=== PATIENT | male | born 1965 | race Caucasian/White ===

== ENCOUNTER → 2018-06-03 | Outpatient (CLI) | payer BC ==
--- NOTE | 2018-06-04 10:14 | ECHOF ---
Referral Reason:R60.0 Loczlized edema MEASUREMENTS -------- HEIGHT: 177.8 cm WEIGHT: 104.3 kg BP: RVIDd: 3.1 cm (< 3.3) IVSd: 1.3 cm (0.6 - 1.1) LVIDd: 5.4 cm (3.9 - 5.3) LVPWd: 1.3 cm (0.6 - 1.1) IVSs: 1.7 cm LVIDs: 3.6 cm LVPWs: 1.7 cm LAESV Index (A-L): 31.09 ml/m Ao Diam: 3.2 cm (2.0 - 3.7) AV Cusp: 2.1 cm (1.5 - 2.6) LA Diam: 4.0 cm (2.7 - 3.8) MV EXCURSION: 17.354 mm (> 18.000) MV EF SLOPE: 77 mm/s (70 - 150) EPSS: 0.9 cm MV E Sharad: 0.95 m/s MV DecT: 266 ms MV A Sharad: 0.89 m/s MV E/A Ratio: 1.07 RAP: 5.00 mmHg RVSP: 15.03 mmHg FINDINGS -------- Sinus rhythm. Frequent ventricular premature beats. This was a technically adequate study. The left ventricular size is normal. There is mild concentric left ventricular hypertrophy. Overa ll left ventricular systolic function is normal with, an EF between 55 - 60 %. The right ventricle is normal in size and function. LA is midly dilated 29-33ml/m2. RA appears enlarged. There is mild aortic valve sclerosis. There is no evidence of aortic regurgitation. There is no e vidence of aortic stenosis. The mitral valve leaflets are mildly thickened. There is trace mitral regurgitation. Trace tricuspid regurgitation present. Right ventricular systolic pressure is normal at < 35 mmHg. There is no evidence of pulmonary hypertension. Trace/mild (physiologic) pulmonic regurgitation. The aortic root size is normal. IVC Not well visulized. There is no pericardial effusion. CONCLUSIONS -------- 1. Sinus rhythm. 2. Frequent ventricular premature beats. 3. This was a technically adequate study. 4. The left ventricular size is normal. 5. There is mild concentric left ventricular hypertrophy. 6. Overall left ventricular systolic function is normal with, an EF between 55 - 60 %. 7. LA is midly dilated 29-33ml/m2. 8. RA appears enlarged. 9. There is mild aortic valve sclerosis. 10. The mitral valve leaflets are mildly thickened. 11. There is trace mitral regurgitation. 12. Trace tricuspid regurgitation present. 13. Right ventricular systolic pressure is normal at < 35 mmHg. 14. There is no evidence of pulmonary hypertension. 15. Trace/mild (physiologic) pulmonic regurgitation. 16. The aortic root size is normal. 17. IVC Not well visulized. 18. There is no pericardial effusion. BIOLOGICAL SCIENCES INSTRUCTOR: Cali Mireles RDCS
== END ==
LOC: RADECHMAIN 16:42
PROVIDERS: ATTEND Family Medicine
DX: I35.8 Other nonrheumatic aortic valve disorders (principal); I05.9 Rheumatic mitral valve disease, unspecified; I37.1 Nonrheumatic pulmonary valve insufficiency
CPT/HCPCS: 93306

== ENCOUNTER 2019-04-05 04:45 | Inpatient (IN) | payer BC ==
[2019-04-05 05:28] LABS: Appearance,Urine Clear (Clear); Bilirubin,Urine Negative (Negative); Blood,Urine Trace (Negative); Color,Urine Light Yellow; Glucose,Urine (UA) 4+ (Negative); Ketones,Urine Negative (Negative); Leukocyte Esterase,Urine Negative (Negative); Mucus,Urine Rare /hpf; Nitrite,Urine Negative (Negative); Protein,Urine Negative (Negative); RBC,Urine 1 /hpf (0-5); Specific Gravity,Urine 1.019 (1.001-1.035); Urobilinogen,Urine <2.0 mg/dL (<2.0); WBC,Urine 1 /hpf (0-5)
--- NOTE | 2019-04-05 05:34 | ED ---
Psych HPI - General Source: patient Mode of arrival: ambulatory - History of Present Illness MD Complaint: suicidal ideation, feels depressed -: week(s) Associated Psychiatric Symptoms: depression, suicidal ideation Quality: changing over time Improves With: none Worsens With: alcohol Context: recent alcohol abuse Associated Symptoms: denies other symptoms Treatments Prior to Arrival: none <Ant Velasquez - Last Filed: 04/05/19 05:32> <Chandan Burns - Last Filed: 04/05/19 09:44> - General Stated Complaint: Mental Health/ Sugar Issues Time Seen by Provider: 04/05/19 04:49 - History of Present Illness Initial Comments: Patient's 53-year-old man brought to have psychiatric evaluation after he had text did friends he was considering jumping in the river. The patient's friends intervened and brought him here for evaluation. (Ant Velasquez) - Related Data Allergies Allergy/AdvReac Type Severity Reaction Status Date / Time Penicillins Allergy Rash/Hives Verified 04/05/19 09:23 Review of Systems ROS Other: All systems not noted in ROS Statement are negative. Constitutional: Denies: fever, chills Respiratory: Denies: cough, dyspnea Cardiovascular: Denies: chest pain, palpitations Gastrointestinal: Denies: abdominal pain, vomiting Genitourinary: Denies: dysuria, hematuria Musculoskeletal: Denies: back pain Skin: Denies: rash Neurological: Denies: headache Psychiatric: Reports: depression, suicidal thoughts. Denies: auditory hallucinations, visual hallucinations, homicidal thoughts <Ant Velasquez - Last Filed: 04/05/19 05:32> ROS Other: All systems not noted in ROS Statement are negative. <Chandan Burns - Last Filed: 04/05/19 09:44> ROS Statement: Those systems with pertinent positive or pertinent negative responses have been documented in the HPI. Past Medical History Past Medical History: Diabetes Mellitus, Hyperlipidemia, Hypertension History of Any Multi-Drug Resistant Organisms: None Reported Additional Past Surgical History / Comment(s): right foot bunion removal and hammer toe fixed. Past Psychological History: Depression Smoking Status: Current every day smoker Past Alcohol Use History: Abuse, Daily Past Drug Use History: None Reported <Ant Velasquez - Last Filed: 04/05/19 05:32> General Exam Limitations: no limitations General appearance: alert, appears intoxicated Head exam: Present: atraumatic, normocephalic Eye exam: Present: normal appearance. Absent: scleral icterus, conjunctival injection ENT exam: Present: normal oropharynx Neck exam: Present: normal inspection Respiratory exam: Present: normal lung sounds bilaterally. Absent: respiratory distress, wheezes, rales, rhonchi, stridor Cardiovascular Exam: Present: regular rate, normal rhythm, normal heart sounds. Absent: systolic murmur, diastolic murmur, rubs, gallop GI/Abdominal exam: Present: soft. Absent: tenderness, guarding, rebound, rigid, mass Extremities exam: Present: normal inspection, normal capillary refill. Absent: pedal edema, calf tenderness Back exam: Present: normal inspection. Absent: CVA tenderness (R), CVA tenderness (L) Neurological exam: Present: alert Psychiatric exam: Present: depressed, suicidal ideation. Absent: agitated, anxious, flat affect, manic, homicidal ideation Skin exam: Present: warm, dry, intact, normal color. Absent: rash <Ant Velasquez - Last Filed: 04/05/19 05:32> Course Vital Signs 04/05/19 04/05/19 04:49 06:32 Temperature 97.9 F Pulse Rate 72 54 L Respiratory 18 18 Rate Blood Pressure 154/77 125/60 O2 Sat by Pulse 97 96 Oximetry Medical Decision Making <Chandan Burns - Last Filed: 04/05/19 09:44> - Medical Decision Making Patient care was signed out to me by previous shift physician Dr. Ibarra. Briefly, patient is a 53-year-old male presents with suicidal ideation. Patient was EtOH intoxicated at this time. Plan at [place] to follow-up with EPS recommendations. EPS recommends patient be admitted to inpatient psychiatry for inpatient monitoring. Patient reevaluated at bedside with stable medical condition. He has no complaints at this time. Physical examination done at bedside is unremarkable. (Chandan Burns) - Lab Data Lab Results 04/05/19 04/05/19 Range/Units 05:20 06:30 POC Glucose (mg/dL) 140 H (75-99) mg/dL POC Glu Peanut Farmer ID Myriam Tinsley Urine Color Light Yellow Urine Appearance Clear (Clear) Urine pH 5.0 (5.0-8.0) Ur Specific [place] 1.019 (1.001-1.035) Urine Protein Negative (Negative) Urine Glucose (UA) 4+ H (Negative) Urine Ketones Negative (Negative) Urine Blood Trace H (Negative) Urine Nitrite Negative (Negative) Urine Bilirubin Negative (Negative) Urine Urobilinogen <2.0 (<2.0) mg/dL Ur Leukocyte Esterase Negative (Negative) Urine RBC 1 (0-5) /hpf Urine WBC 1 (0-5) /hpf Urine Mucus Rare H (None) /hpf Urine Opiates Screen Not Detected (NotDetected) Ur Oxycodone Screen Not Detected (NotDetected) Urine Methadone Screen Not Detected (NotDetected) Ur Propoxyphene Screen Not Detected (NotDetected) Ur Barbiturates Screen Not Detected (NotDetected) U Tricyclic Antidepress Not Detected (NotDetected) Ur Phencyclidine Scrn Not Detected (NotDetected) Ur Amphetamines Screen Not Detected (NotDetected) U Methamphetamines Scrn Not Detected (NotDetected) U Benzodiazepines Scrn Not Detected (NotDetected) Urine Cocaine Screen Not Detected (NotDetected) U Marijuana (THC) Screen Not Detected (NotDetected) Disposition <Ant Velasquez - Last Filed: 04/05/19 05:32> Decision Time: 09:44 <Chandan Burns - Last Filed: 04/05/19 09:44> Clinical Impression: Suicidal ideation Disposition: ADMITTED IP TO THIS [facility] Condition: Fair Referrals: Tim Cesar DO [Primary Care Provider] - 1-2 days
[2019-04-05 05:41] LABS: Amphetamine Screen,Urine Not Detected (NotDetected); Barbiturate Screen,Urine Not Detected (NotDetected); Benzodiazepines Screen,Urine Not Detected (NotDetected); Cocaine Screen,Urine Not Detected (NotDetected); Methadone Screen, Urine Not Detected (NotDetected); Opiate Screen,Urine Not Detected (NotDetected); Oxycodone Screen, Urine Not Detected (NotDetected); Phencyclidine Screen,Urine Not Detected (NotDetected); Tricyclic Antidepressant,Urine Not Detected (NotDetected); Urn Cannabinoid Scrn Not Detected (NotDetected)
[2019-04-05 06:37] LABS: Glucose,Whole Blood 140 mg/dL (75-99)
[2019-04-05 11:10] LABS: Glucose,Whole Blood 83 mg/dL (75-99)
[2019-04-05] MEDS: NICOTINE 21MG/24HR PATCH TRANSDERM STA ×2 (12:27→12:29)
[2019-04-05 15:42] LABS: Glucose,Whole Blood 64 mg/dL (75-99)
[2019-04-05] MEDS ORDERED: MAGNESIUM HYDROXIDE 2,400 MG/10 ML CUP PO PRN (16:13)
[2019-04-05] MEDS ORDERED: ACETAMINOPHEN TAB 325 MG TAB PO PRN (16:13)
[2019-04-05] MEDS ORDERED: MAG HYDROX/AL HYDROX/SIMETH 30 ML CUP PO PRN (16:13)
[2019-04-05] MEDS ORDERED: ZIPRASIDONE 20 MG VIAL IM PRN (16:36)
[2019-04-05] MEDS ORDERED: LORazepam 1 MG TAB PO PRN (16:36)
[2019-04-05 17:06] VITALS: BMI 29.1
[2019-04-05 18:05] LABS: Glucose,Whole Blood 97 mg/dL (75-99)
[2019-04-05] MEDS: NON-FORMULARY DRUG (Dulaglutide [Trulicity] 1.5 MG) SQ SCH (18:47)
[2019-04-05 20:06] LABS: Glucose,Whole Blood 192 mg/dL (75-99)
[2019-04-06 07:43] LABS: Glucose,Whole Blood 81 mg/dL (75-99)
[2019-04-06] MEDS: INSULIN DETEMIR (LEVEMIR) 100 UNIT/ML SYR SQ SCH (08:00)
[2019-04-06 08:59] LABS: Basophils # (A) 0.1 k/uL (0-0.2); Basophils % (A) 1 %; Eosinophils # (A) 0.2 k/uL (0-0.7); Eosinophils % (A) 3 %; HCT 52.4 % (39.0-53.0); HGB 17.3 gm/dL (13.0-17.5); Lymphocytes # (A) 1.5 k/uL (1.0-4.8); Lymphocytes % (A) 21 %; MCHC 33.1 g/dL (31.0-37.0); MCV 90.7 fL (80.0-100.0); Mean Platelet Volume 6.8; Monocytes # (A) 0.5 k/uL (0-1.0); Monocytes % (A) 8 %; Neutrophils # (A) 4.8 k/uL (1.3-7.7); Neutrophils % (A) 67 %; Platelet Count 274 k/uL (150-450); RBC 5.78 m/uL (4.30-5.90); RDW 12.9 % (11.5-15.5); WBC 7.2 k/uL (3.8-10.6)
[2019-04-06 09:12] LABS: ALT 31 U/L (21-72); AST 30 U/L (17-59); African American GFR (CKD) >90 (>60 ml/min/1.73 sqM); Albumin 3.9 g/dL (3.5-5.0); Alkaline Phosphatase 77 U/L (38-126); Anion Gap 6 mmol/L; Bilirubin, Delta 0.4 mg/dL (0.0-0.2); Bilirubin,Unconjugated 2.1 mg/dL (0.0-1.1); Blood Urea Nitrogen 17 mg/dL (9-20); Carbon Dioxide 29 mmol/L (22-30); Chloride 105 mmol/L (98-107); Cholesterol 164 mg/dL (<200); Glucose 129 mg/dL (74-99); HDL Cholesterol 38 mg/dL (40-60); LDL Cholesterol,Calculated 99 mg/dL (0-99); Potassium 4.6 mmol/L (3.5-5.1); Sodium 140 mmol/L (137-145); Total Bilirubin 2.5 mg/dL (0.2-1.3); Triglycerides 135 mg/dL (<150)
[2019-04-06] MEDS: amLODIPine 5 MG TAB PO SCH (09:30)
[2019-04-06] MEDS: LOSARTAN 50 MG TAB PO SCH (09:31)
[2019-04-06] MEDS: NON-FORMULARY DRUG (Empagliflozin [Jardiance] 25 MG) PO SCH (09:31)
[2019-04-06 12:34] LABS: Glucose,Whole Blood 106 mg/dL (75-99)
--- NOTE | 2019-04-06 13:46 | P.CONS ---
History of Present Illness - History of Present Illness This is a pleasant 53 years old male with past medical history of diabetes me llitus. He presents to the mental health unit for suicidal ideation, he told his her friend he was considering jumping into the urinary bladder. Medical team has been consulted for A, management and for right foot ulcer. Patient denies chest pain or dyspnea. No abdominal pain or nausea vomiting. No upper respiratory infection. No dysuria. No change in urine or bowel habit. No fever. Review of Systems CONSTITUTIONAL: No fever, no malaise, no fatigue. HEENT: No recent visual problems or hearing problems. Denied any sore throat. CARDIOVASCULAR: No orthopnea, PND, no palpitations, no syncope. PULMONARY: No shortness of breath, no cough, no hemoptysis. GASTROINTESTINAL: No diarrhea, no nausea, no vomiting, no abdominal pain. Normoactive bowel sounds. NEUROLOGICAL: No headaches, no weakness, no numbness. HEMATOLOGICAL: Denies any bleeding or petechiae. GENITOURINARY: Denies any burning micturition, frequency, or urgency. MUSCULOSKELETAL/RHEUMATOLOGICAL: Denies any joint pain, swelling, or any muscle pain. ENDOCRINE: Denies any polyuria or polydipsia. Past Medical History Past Medical History: Diabetes Mellitus, Hyperlipidemia, Hypertension History of Any Multi-Drug Resistant Organisms: None Reported Additional Past Surgical History / Comment(s): right foot bunion removal and hammer toe fixed. Past Psychological History: Depression Smoking Status: Current every day smoker Past Alcohol Use History: Abuse, Daily Past Drug Use History: None Reported Medications and Allergies Home Medications Medication Instructions Recorded Confirmed Type Dulaglutide [Trulicity] 1.5 mg SQ Q7D 04/05/19 04/05/19 History Empagliflozin [Jardiance] 25 mg PO DAILY 04/05/19 04/05/19 History Insulin Degludec [Tresiba 40 units SQ DAILY 04/05/19 04/05/19 History Flextouch U-200] Losartan Potassium [Cozaar] 100 mg PO DAILY 04/05/19 04/05/19 History Nicotine [Nicotrol] 1 puff INHALATION RT-Q1H PRN MDD 04/05/19 04/05/19 History 16 PUFFS amLODIPine [Norvasc] 5 mg PO DAILY 04/05/19 04/05/19 History Allergies Allergy/AdvReac Type Severity Reaction Status Date / Time Penicillins Allergy Rash/Hives Verified 04/05/19 16:20 Physical Exam Vitals: Vital Signs Temp Pulse Resp BP 04/06/19 06:51 98.2 F 62 16 170/74 04/05/19 17:07 98.3 F 75 18 04/05/19 16:27 98.3 F 75 18 144/81 Intake and Output 04/05/19 04/06/19 04/06/19 22:59 06:59 14:59 Other: Weight 97.545 kg GENERAL: The patient is alert and oriented x3, not in any acute distress. Well developed, well nourished. HEENT: Pupils are round and equally reacting to light. EOMI. No scleral icterus. No conjunctival pallor. Normocephalic, atraumatic. No pharyngeal erythema. No thyromegaly. CARDIOVASCULAR: S1 and S2 present. No murmurs, rubs, or gallops. PULMONARY: Chest is clear to auscultation, no wheezing or crackles. ABDOMEN: Soft, nontender, nondistended, normoactive bowel sounds. No palpable organomegaly. MUSCULOSKELETAL: No joint swelling or deformity. -EXTREMITIES: No cyanosis, clubbing, or pedal edema. Right foot diabetic ulcer, on the bottom of the first/big toe, on the sole. With pale Yellowish discoloration underneath the skin NEUROLOGICAL: Gross neurological examination did not reveal any focal deficits. SKIN: No rashes. Results CBC & Chem 7: 04/06/19 08:36 04/06/19 08:36 Labs: Abnormal Lab Results - Last 24 Hours (Table) 04/05/19 04/05/19 04/06/19 Range/Units 15:37 20:04 08:36 Glucose 129 H (74-99) mg/dL POC Glucose (mg/dL) 64 L 192 H (75-99) mg/dL Total Bilirubin 2.5 H (0.2-1.3) mg/dL Unconjugated Bilirubin 2.1 H (0.0-1.1) mg/dL Delta Bilirubin 0.4 H (0.0-0.2) mg/dL HDL Cholesterol 38 L (40-60) mg/dL 04/06/19 Range/Units 12:33 Glucose (74-99) mg/dL POC Glucose (mg/dL) 106 H (75-99) mg/dL Total Bilirubin (0.2-1.3) mg/dL Unconjugated Bilirubin (0.0-1.1) mg/dL Delta Bilirubin (0.0-0.2) mg/dL HDL Cholesterol (40-60) mg/dL Assessment and Plan Assessment: Suicidal ideation and other sac illnesses, management as per second primary team. Right foot diabetic ulcer Type 2 diabetes mellitus possible medication on [place], discharge events and traesiba 40 units Hypertension Nicotine dependence Plan: This is a pleasant 53 years old male who presents to the psychiatric unit for suicidal ideation. Also he has right foot diabetic ulcer. We'll consult surgical team and foot x-ray. Labs and medication were reviewed.. Continue same treatment. Continue with symptomatic treatment. Resume home medication. Monitor lytes and vitals. DVT and GI prophylaxis. Further recommendations of the clinical course of the patient DVT prophylaxis: Patient is mobile and his low-risk for DVT
--- NOTE | 2019-04-06 14:36 | XR ---
EXAMINATION TYPE: XR foot complete RT DATE OF EXAM: 04/06/2019 COMPARISON: NONE HISTORY: Diabetic ulcer TECHNIQUE: Three views are submitted. FINDINGS: The osseous structures are intact. There is no acute fracture or dislocation. Joint spaces are p reserved. Postsurgical changes involving the first digit. Deformity involving the PIP joint of the se cond digit likely is chronic. IMPRESSION: 1. No acute fracture or dislocation. There is a chronic appearing deformity of the distal margin of t he proximal phalanx second digit at the level the PIP joint. If there is concern for osteomyelitis co rrelate with triple phase bone scan. 2. Extensive postsurgical change involving the first digit with arthropathy of the first MTP joint an d chronic deformity of the metatarsal.
[2019-04-06] MEDS ORDERED: traZODone HCL 50 MG TAB PO PRN ×2 (15:09→15:42)
[2019-04-06] MEDS ORDERED: LORazepam 1 MG TAB PO PRN (15:34)
--- NOTE | 2019-04-06 15:40 | P.HP ---
Psychiatric H&P - . H&P Date: 04/06/19 History & Physical: Allergies Allergy/AdvReac Type Severity Reaction Status Date / Time Penicillins Allergy Rash/Hives Verified 04/05/19 16:20 Vital Signs Temp 98.2 F 04/06/19 06:51 Pulse 62 04/06/19 06:51 Resp 16 04/06/19 06:51 BP 170/74 04/06/19 06:51 Pulse Ox 94 L 04/05/19 12:29 Intake & Output 04/05/19 04/06/19 04/06/19 18:59 06:59 18:59 Weight 97.545 kg Laboratory Last Values WBC 7.2 k/uL (3.8-10.6) 04/06/19 08:36 RBC 5.78 m/uL (4.30-5.90) 04/06/19 08:36 Hgb 17.3 gm/dL (13.0-17.5) 04/06/19 08:36 Hct 52.4 % (39.0-53.0) 04/06/19 08:36 MCV 90.7 fL (80.0-100.0) 04/06/19 08:36 MCH 30.0 pg (25.0-35.0) 04/06/19 08:36 MCHC 33.1 g/dL (31.0-37.0) 04/06/19 08:36 RDW 12.9 % (11.5-15.5) 04/06/19 08:36 Plt Count 274 k/uL (150-450) 04/06/19 08:36 Neutrophils % 67 % 04/06/19 08:36 Lymphocytes % 21 % 04/06/19 08:36 Monocytes % 8 % 04/06/19 08:36 Eosinophils % 3 % 04/06/19 08:36 Basophils % 1 % 04/06/19 08:36 Neutrophils # 4.8 k/uL (1.3-7.7) 04/06/19 08:36 Lymphocytes # 1.5 k/uL (1.0-4.8) 04/06/19 08:36 Monocytes # 0.5 k/uL (0-1.0) 04/06/19 08:36 Eosinophils # 0.2 k/uL (0-0.7) 04/06/19 08:36 Basophils # 0.1 k/uL (0-0.2) 04/06/19 08:36 Sodium 140 mmol/L (137-145) 04/06/19 08:36 Potassium 4.6 mmol/L (3.5-5.1) 04/06/19 08:36 Chloride 105 mmol/L (98-107) 04/06/19 08:36 Carbon Dioxide 29 mmol/L (22-30) 04/06/19 08:36 Anion Gap 6 mmol/L 04/06/19 08:36 BUN 17 mg/dL (9-20) 04/06/19 08:36 Creatinine 0.91 mg/dL (0.66-1.25) 04/06/19 08:36 Est GFR (CKD-EPI)AfAm >90 (>60 ml/min/1.73 sqM) 04/06/19 08:36 Est GFR (CKD-EPI)NonAf >90 (>60 ml/min/1.73 sqM) 04/06/19 08:36 Glucose 129 mg/dL (74-99) H 04/06/19 08:36 POC Glucose (mg/dL) 106 mg/dL (75-99) H 04/06/19 12:33 POC Glu [employer] Advisor ID Hannah Prescott 04/06/19 12:33 Calcium 9.0 mg/dL (8.4-10.2) 04/06/19 08:36 Total Bilirubin 2.5 mg/dL (0.2-1.3) H 04/06/19 08:36 Conjugated Bilirubin 0.0 mg/dL (0.0-0.3) 04/06/19 08:36 Unconjugated Bilirubin 2.1 mg/dL (0.0-1.1) H 04/06/19 08:36 Delta Bilirubin 0.4 mg/dL (0.0-0.2) H 04/06/19 08:36 AST 30 U/L (17-59) 04/06/19 08:36 ALT 31 U/L (21-72) 04/06/19 08:36 Alkaline Phosphatase 77 U/L (38-126) 04/06/19 08:36 Total Protein 7.0 g/dL (6.3-8.2) 04/06/19 08:36 Albumin 3.9 g/dL (3.5-5.0) 04/06/19 08:36 Triglycerides 135 mg/dL (<150) 04/06/19 08:36 Cholesterol 164 mg/dL (<200) 04/06/19 08:36 LDL Cholesterol, Calc 99 mg/dL (0-99) 04/06/19 08:36 HDL Cholesterol 38 mg/dL (40-60) L 04/06/19 08:36 TSH 1.080 mIU/L (0.465-4.680) 04/06/19 08:36 Urine Color Light Yellow 04/05/19 05:20 Urine Appearance Clear (Clear) 04/05/19 05:20 Urine pH 5.0 (5.0-8.0) 04/05/19 05:20 Ur Specific [place] 1.019 (1.001-1.035) 04/05/19 05:20 Urine Protein Negative (Negative) 04/05/19 05:20 Urine Glucose (UA) 4+ (Negative) H 04/05/19 05:20 Urine Ketones Negative (Negative) 04/05/19 05:20 Urine Blood Trace (Negative) H 04/05/19 05:20 Urine Nitrite Negative (Negative) 04/05/19 05:20 Urine Bilirubin Negative (Negative) 04/05/19 05:20 Urine Urobilinogen <2.0 mg/dL (<2.0) 04/05/19 05:20 Ur Leukocyte Esterase Negative (Negative) 04/05/19 05:20 Urine RBC 1 /hpf (0-5) 04/05/19 05:20 Urine WBC 1 /hpf (0-5) 04/05/19 05:20 Urine Mucus Rare /hpf (None) H 04/05/19 05:20 Urine Opiates Screen Not Detected (NotDetected) 04/05/19 05:20 Ur Oxycodone Screen Not Detected (NotDetected) 04/05/19 05:20 Urine Methadone Screen Not Detected (NotDetected) 04/05/19 05:20 Ur Propoxyphene Screen Not Detected (NotDetected) 04/05/19 05:20 Ur Barbiturates Screen Not Detected (NotDetected) 04/05/19 05:20 U Tricyclic Antidepress Not Detected (NotDetected) 04/05/19 05:20 Ur Phencyclidine Scrn Not Detected (NotDetected) 04/05/19 05:20 Ur Amphetamines Screen Not Detected (NotDetected) 04/05/19 05:20 U Methamphetamines Scrn Not Detected (NotDetected) 04/05/19 05:20 U Benzodiazepines Scrn Not Detected (NotDetected) 04/05/19 05:20 Urine Cocaine Screen Not Detected (NotDetected) 04/05/19 05:20 U Marijuana (THC) Screen Not Detected (NotDetected) 04/05/19 05:20 04/06/19 15:03 IDENTIFYING DATA: Patient is a 53-year-old male with a history of depression who currently lives in a house in [place] with his and 1 son, currently employed by [employer]. HPI: Patient presented to the hospital after texting a friend saying that he was going to end his life by jumping into the water/[place]iver. Patient claims that on Wednesday night he was in a pool game in a league at a bar with friends and ended up losing the game. He states that he felt very depressed after losing the game and went to another bar and drank heavily approximately 6-10 drinks was intoxicated and claimed he was feeling alone. He claims at that time he texted 2 of his friends claiming that she was going to be by the water near the bridge and was going to jump and end his life. He states that he went down to the river and walked near it and had thoughts of jumping in when his friends arrived and brought him into the hospital. Patient states that he has been feeling depressed for years and has previously been put on Paxil which he did not tolerate well. He states that he has had on and off suicidal ideations whenever he gets intoxicated for most of his life. He spoke of stressors at home claiming that he is trying to look for another job and how his finances are very tight trying to support his family. He states that he doesn't have insurance or any benefits with his work. He claims that he is also been thinking about his mother who . Patient admits to decreased concentration, guilt. At this time Patient denies any suicidal or homicidal ideations intent or plan. At this time patient denies any auditory or visual hallucinations. Patient denies any flight of ideas racing thoughts and increased in goal directed behavior. Patient admits to using a significant amount of alcohol 6-10 beers a night and smokes 1 pack of cigarettes per day. He denies any other illicit drug use. PAST PSYCHIATRIC HISTORY: Depression, anxiety. She has tried Paxil in the past however discontinued due to side effects. Patient denies any previous hospitalizations in a psychiatric facility. He denies any previous suicide attempts. Patient does not follow up with a psychiatrist. PMH: Diabetes mellitus, ulcer on his foot. Hypertension ALLERGIES: Penicillins CHEMICAL DEPENDENCY HISTORY: Per HPI FAMILY PSYCHIATRIC/SUBSTANCE USE HISTORY: Denies SOCIAL HISTORY: Patient is currently lives in a house in [facility]. 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 Has a master's in accounting. He has one son. MENTAL STATUS EXAM: General Appearance: Patient appears to be stated age is alert, pleasant, and cooperative. Hygiene and grooming fair Behavior: Patient is calmly seated without any agitated behavior. Irritable at times. Speech: Patient's speech is fluent and nonpressured. Mood/Affect: Patient reports their mood is poor, affect is congruent and constricted Suicidality/Homicidality: Patient denies having any suicidal or homicidal ideation intent or plan. Perceptions: Patient denies any auditory or visual hallucinations. Though content/process: There is no evidence of any delusional thought content and thought process is linear and goal-directed. Memory and concentration: AOX3, grossly intact for the purposes of this session. Can spell "WORLD" backwards Judgment and insight: Superficial STRENGTHS/WEAKNESSES: Good support system. Poor insight of her treatment. INTELLECT: Average IMPRESSIONS: Major depressive disorder, moderate-severe. Alcohol use disorder Nicotine use disorder. PLAN: -Patient is admitted under voluntary status to MHU for stabilization of psychiatric symptoms and safety. Patient signed adult voluntary form and medication consent and is placed in patient's chart. -Will start patient on sertraline 50 mg daily for mood and anxiety. Ordered trazodone 25 mg daily at bedtime when necessary for insomnia and mood. -Geodon and Ativan PRN for agitation/aggression -CIWA every 6 hours for alcohol withdrawal. Ativan to be given when necessary for CIWA scores between 10-15. -Started thiamine, MVM for etoh use -Patient was counselled on substance abuse and desired to cut back on use -Patient was informed of the risks, benefits and side effects of the medication and patient verbally consented to taking the medications. Patient signed med consent form and was placed in chart. -NRT - nicotine patch. -DAVID on board for discharge planning. Likely discharge home early next week. 04/06/19 15:24 04/06/19 15:38
[2019-04-06] MEDS: SERTRALINE 50 MG TAB PO SCH (15:45)
[2019-04-06 17:48] LABS: Glucose,Whole Blood 207 mg/dL (75-99)
[2019-04-06] MEDS: CEPHALEXIN 500 MG CAP PO SCH ×2 (17:48→21:44)
[2019-04-06] MEDS: NON-FORMULARY DRUG (Dulaglutide [Trulicity] 1.5 MG) SQ SCH (17:51)
[2019-04-06 19:34] LABS: Hemoglobin A1C 7.7 % (4.0-6.0)
[2019-04-06 19:57] LABS: Glucose,Whole Blood 274 mg/dL (75-99)
--- NOTE | 2019-04-07 05:23 | CONS ---
CONSULTATION DATE OF SERVICE: 04/06/2019 REASON FOR CONSULTATION: Right diabetic foot wound and cellulitis. HISTORY OF PRESENT ILLNESS: The patient is a 53-year-old male with a past medical history significant for diabetes mellitus, hypertension, hyperlipidemia, depression. The patient did have a wound on the plantar aspect of his right foot as a result of a callus that the patient ripped off about a week ago. The patient has been using some bandages to protect the area; however, as the bandage has been there for more than 24 hours he noticed to have more drainage on it with wound on the plantar aspect of the right foot with some surrounding white discoloration. The patient did have diabetic neuropathy. Denies significant pain to the right foot wound area. The patient denies having any fever or any chills. The patient is basically admitted hospital for suicidal ideation and is currently on the psych floor. Medicine saw the patient for management of medical condition and subsequently requested infectious disease evaluation of his right foot wound. The patient did have x-rays of the right foot completed, which shows no acute fracture or dislocation, chronic appearing deformity of the distal margin of the proximal phalanx second digit and extensive postsurgical change involving the first digit. The patient did have a bunionectomy surgery done by Dr. Hedrick in 2015. This patient has been afebrile and white count has been normal so far. REVIEW OF SYSTEMS: Positive points have been mentioned in HPI. Rest of the systems are negative. PAST MEDICAL HISTORY: Significant for diabetes mellitus, hypertension, hyperlipidemia, anxiety, depression. PAST SURGICAL HISTORY: Right foot bunion surgery and hammertoe surgery. SOCIAL HISTORY: Positive for smoking every day and drinking alcohol. No drug use. FAMILY HISTORY: No pertinent findings were noticed. ALLERGIES: Allergy to PENICILLIN with a rash. No history of anaphylaxis. MEDICATION: Medications include the patient is currently on Tylenol, Maalox, Norvasc, Levemir, Ativan, Cozaar, milk of magnesia, Zoloft, Desyrel, Geodon. PHYSICAL EXAMINATION: On examination, blood pressure 170/74 with a pulse of 62, temperature 98.2. He is 94% on room air. General description is a middle aged male up in the bed in no distress. HEENT examination shows no pallor or scleral icterus. Oral mucous membrane is dry. No pharyngeal erythema or thrush. NECK: Trachea central. There is no thyromegaly. LUNGS: Unlabored breathing, clear to auscultation anteriorly. No wheeze or crackle. HEART: S1, S2. Regular rate and rhythm. ABDOMEN: Soft, no tenderness. No guarding or rigidity. EXTREMITIES: No edema of the feet. Examination of the right foot on the plantar aspect did have a wound with some surrounding laceration. Minimal foul-smelling. No purulent drainage was noticed. NEUROLOGICAL: The patient is awake, alert, oriented x3. Mood and affect normal. LABS: Hemoglobin 17.3, white count 7.2, BUN of 17, creatinine 0.91. Electrolytes are normal. Liver enzymes are normal. DIAGNOSTIC IMPRESSION AND PLAN: 1. Patient with right diabetic foot wound with secondary cellulitis in this patient who does have a wound as a result of the patient ripping off his callus with a component of mild cellulitis likely from a gram-positive skin cierra low for a gram-negative infection. 2. Patient PENICILLIN allergy limits the number of antibiotics safe to use. PLAN: 1. Wound culture has been obtained to guide further antibiotic therapy. 2. I will empirically add Keflex 500 mg p.o. 3 times a day. 3. We will follow on his clinical condition and culture to further adjust medication if needed. Thank you for this consultation. Will follow this patient along with you. MMODL / IJN: [id number] /
[2019-04-07 07:46] LABS: Glucose,Whole Blood 82 mg/dL (75-99)
[2019-04-07] MEDS: INSULIN DETEMIR (LEVEMIR) 100 UNIT/ML SYR SQ SCH (08:00)
[2019-04-07] MEDS: NON-FORMULARY DRUG (Empagliflozin [Jardiance] 25 MG) PO SCH (09:18)
[2019-04-07] MEDS: THIAMINE 100 MG TAB PO SCH (09:20)
[2019-04-07] MEDS: amLODIPine 5 MG TAB PO SCH (09:20)
[2019-04-07] MEDS: MULTIVITAMINS, THERA 1 EACH TAB PO SCH (09:20)
[2019-04-07] MEDS: SERTRALINE 50 MG TAB PO SCH (09:20)
[2019-04-07] MEDS: CEPHALEXIN 500 MG CAP PO SCH ×3 (09:21→21:14)
[2019-04-07] MEDS: LOSARTAN 50 MG TAB PO SCH (09:21)
[2019-04-07 11:10] LABS: Albumin 3.9 g/dL (3.5-5.0); Bilirubin, Delta 0.4 mg/dL (0.0-0.2); Bilirubin,Unconjugated 1.7 mg/dL (0.0-1.1); Total Bilirubin 2.1 mg/dL (0.2-1.3); Total Protein 6.9 g/dL (6.3-8.2)
--- NOTE | 2019-04-07 12:10 | P.PN ---
Progress Note - Text Progress Note Date: 04/07/19 Interval History: patient was seen wandering the hallways this afternoon and was agreeable to sp eak to typewriters functional tester. Patient was directable and appropriate however appeared to be guarded and in denial. Patient states that he doesn't understand why he is in the hospital and states that "this is only can make it worse". Patient claims that he is taking his medications and he claims that the only side effect he felt so far was diarrhea last night from the Zoloft and states that it is okay now. Patient claims that his mood is "about the same". He denies any changes in his anxiety. Patient was reluctant to give release of information for however it was explained to him that a safe disposition was needed prior to discharge. Patient claims that he slept well last night and did not need the trazodone however typewriters functional tester informed patient that trazodone was available if needed for insomnia. he did state that he did go to some groups however did not find them beneficial.At this time patient denies any suicidal or homical ideations, intent or plan. Patient denies any auditory, visual hallucinations and denies any paranoia or delusions. he should admitted to be compliant with medications Mental Status Exam: General Appearance: [Patient appears to be stated age is alert, pleasant, and co operative.] patient's hygiene and grooming are improving. Behavior: [Patient is calmly seated without any agitated behavior.]patient was guarded today. Speech: Patient's speech is fluent and nonpressured. Mood/Affect: Patient reports their mood is "about the same", affect is congruent and constricted. Suicidality/Homicidality: Patient denies having any suicidal or homicidal ideation intent or plan. Perceptions: Patient denies any auditory or visual hallucinations. Though content/process: [There is no evidence of any delusional thought content and thought process is linear and goal-directed.] patient minimizes his depression and symptoms. Memory and concentration: AOX3, grossly intact for the purposes of this session Judgment and insight: superficial, poor Assessment: Major depressive disorder, moderate-severe. Alcohol use disorder Nicotine use disorder. Plan: -Patient continues to meet criteria for inpatient psychiatric admission for symptom stabilization and safety.patient is under voluntary status at this time medication consents were signed and placed in the patient's chart. -Medications: we will continue increasing sertraline 100 mg daily starting tomorrowfor mood and anxiety. Increase as tolerated. Patient also will continue on trazodone 25 mg daily at bedtime when necessary for insomnia and mood. -When necessary Geodon and Ativan for agitation/aggression. -CIWA every 6 hours for alcohol withdrawal. Ativan to be given when necessary for CIWA scores between 10-15. -x-ray of foot showed possible osteomyelitis, Keflex by mouth started and wound culture currently pending. -nicotine patch ordered -SW on board for discharge planning. social media marketing specialist to obtain release of information to speak with to ensure safety at home upon discharge.
[2019-04-07 12:49] LABS: Glucose,Whole Blood 86 mg/dL (75-99)
--- NOTE | 2019-04-07 13:41 | PN ---
PROGRESS NOTE DATE OF SERVICE: 04/07/2019 REASON FOR FOLLOWUP: Right diabetic foot with infected callus. INTERVAL HISTORY: The patient is currently afebrile. Patient has been breathing comfortably. Denies having any chest pain or any cough or any worsening of pain to the right foot plantar wound area. PHYSICAL EXAMINATION: On examination, blood pressure 157/76 with pulse 62, temperature 98.1. He is 94% on room air. General description is a middle aged male up in the chair in no distress. Examination of the right foot on the plantar aspect did have an infected callus with minimal redness. No foul smelling drainage. Culture has to be re-taken as was obtained on a swab yesterday. LABS: No new labs today. DIAGNOSTIC IMPRESSION AND PLAN: Patient with right diabetic foot infection. The patient did have infected callus, currently covered with oral Keflex. The patient did have PENICILLIN allergy, tolerated Keflex without any problem, to continue. Culture has been obtained antibiotic therapy. Local wound care with Aquacel Silver dressing to be changed daily. Continue supportive care. MMODL / IJN: [id number] /
[2019-04-07 17:52] LABS: Glucose,Whole Blood 133 mg/dL (75-99)
[2019-04-07 20:11] LABS: Glucose,Whole Blood 145 mg/dL (75-99)
[2019-04-08 07:59] LABS: Glucose,Whole Blood 76 mg/dL (75-99)
[2019-04-08] MEDS: LOSARTAN 50 MG TAB PO SCH (09:07)
[2019-04-08] MEDS: THIAMINE 100 MG TAB PO SCH (09:07)
[2019-04-08] MEDS: SERTRALINE 100 MG TAB PO SCH (09:07)
[2019-04-08] MEDS: amLODIPine 5 MG TAB PO SCH (09:07)
[2019-04-08] MEDS: NON-FORMULARY DRUG (Empagliflozin [Jardiance] 25 MG) PO SCH (09:08)
[2019-04-08] MEDS: CEPHALEXIN 500 MG CAP PO SCH ×3 (09:08→21:18)
[2019-04-08] MEDS: MULTIVITAMINS, THERA 1 EACH TAB PO SCH (09:08)
[2019-04-08] MEDS: INSULIN DETEMIR (LEVEMIR) 100 UNIT/ML SYR SQ SCH (09:09)
[2019-04-08 12:58] LABS: Glucose,Whole Blood 85 mg/dL (75-99)
[2019-04-08 17:52] LABS: Glucose,Whole Blood 118 mg/dL (75-99)
--- NOTE | 2019-04-08 18:30 | PN ---
PROGRESS NOTE DATE OF SERVICE: 04/08/2019. CHIEF COMPLAINT: The patient was depressed. He had suicide thoughts and had texted a friend that he was going to end his life by jumping off a bridge. INTERVAL HISTORY: Patient has been doing fair. He had a quiet evening last night. He said for the most part, he has been sleeping well. He has not been taking any p.r.n. Desyrel. He slept well last night. This morning he has been up. He comes out in the day area. He has been attending groups. He is appropriate in his interaction with staff and peers. He tends to have a quiet manner. He does have a history of significant alcohol issues and reports drinking 6-10 beers, 3-4 days a week. He says he was recognizing it was getting out of control and that he needed to get some help with that as well. He does seem to minimize alcohol issues, even though he recognized a need to cut down his use. He feels that overall mood and anxiety are slowly improving. He tolerates his psychotropic medications. MENTAL STATUS: Patient sat without restlessness. He had fair eye contact. Psychomotor activity was slowed. Speech was monotone. He answered questions appropriately. His thoughts were clear. His affect was blunted. He had a withdrawn manner. His mood was down. He was somewhat distressed though mainly with complaint of headache. There was no indication of thought disorder. Cognition was clear. ASSESSMENT: I will continue the current diagnosis and treatment plan. I will continue psychotropic medications the same. It is noteworthy that CIWA scores have been essentially 0. We will continue to focus on stabilization and discharge planning. He uses his walker a fair amount of the time. We talked about the need for him to try to control shoulder and neck tension, which may be contributing factor. I will start him on Motrin 800 mg 3 times a day. I reviewed discharge planning issues. MMODL / IJN: [id number] / [facility] NETWORKJulia
[2019-04-08 20:11] LABS: Glucose,Whole Blood 200 mg/dL (75-99)
[2019-04-09 06:54] VITALS: TEMP 98.1
[2019-04-09 08:00] LABS: Glucose,Whole Blood 73 mg/dL (75-99)
[2019-04-09] MEDS: LOSARTAN 50 MG TAB PO SCH (08:28)
[2019-04-09] MEDS: MULTIVITAMINS, THERA 1 EACH TAB PO SCH (08:29)
[2019-04-09] MEDS: CEPHALEXIN 500 MG CAP PO SCH ×3 (08:29→21:17)
[2019-04-09] MEDS: THIAMINE 100 MG TAB PO SCH (08:29)
[2019-04-09] MEDS: amLODIPine 5 MG TAB PO SCH (08:29)
[2019-04-09] MEDS: SERTRALINE 100 MG TAB PO SCH (08:29)
[2019-04-09] MEDS: INSULIN DETEMIR (LEVEMIR) 100 UNIT/ML SYR SQ SCH (08:29)
[2019-04-09] MEDS: NON-FORMULARY DRUG (Empagliflozin [Jardiance] 25 MG) PO SCH (08:32)
--- NOTE | 2019-04-09 11:53 | PN ---
PROGRESS NOTE DATE OF SERVICE: 04/09/2019. CHIEF COMPLAINT: The patient was depressed. He had suicide thoughts and had text a friend that he was going to end his life by jumping off a bridge. INTERVAL HISTORY: Patient has been doing fair. He had a quiet evening last night. He comes out in the day area. He will wander about. He will interact with others. He says that he slept well last night. Today he has been up. He comes out in the day area. He attended group this morning. He was described in group as follows: "Appropriate, bright, attentive, organized focused". The patient reports that his mood is good. He sees that he has made progress with being on Zoloft. He would not be inclined to increase the dose at this time given that he has seen progress. He tolerates his psychotropic medications. MENTAL STATUS: Patient gave fairly good eye contact. Psychomotor activity was a little restless. He answered questions appropriately. His thoughts were clear, coherent, and goal directed. His affect was a little constricted. His mood was even he did appear to be distressed. There was no indication of thought disorder. Cognition was clear. ASSESSMENT: I will continue the current diagnosis and treatment plan. I will continue psychotropic medications the same. I briefly reviewed some discharge planning possibilities. We will continue to focus on stabilization and discharge planning. STALIN / KATERYNAN: [id number] /
[2019-04-09 12:46] LABS: Glucose,Whole Blood 109 mg/dL (75-99)
[2019-04-09 17:40] LABS: Glucose,Whole Blood 101 mg/dL (75-99)
[2019-04-09 20:05] LABS: Glucose,Whole Blood 212 mg/dL (75-99)
[2019-04-10 07:40] LABS: Glucose,Whole Blood 74 mg/dL (75-99)
[2019-04-10] MEDS: INSULIN DETEMIR (LEVEMIR) 100 UNIT/ML SYR SQ SCH (07:59)
[2019-04-10] MEDS: MULTIVITAMINS, THERA 1 EACH TAB PO SCH (08:00)
[2019-04-10] MEDS: SERTRALINE 100 MG TAB PO SCH (08:00)
[2019-04-10] MEDS: NON-FORMULARY DRUG (Empagliflozin [Jardiance] 25 MG) PO SCH (08:00)
[2019-04-10] MEDS: LOSARTAN 50 MG TAB PO SCH (08:00)
[2019-04-10] MEDS: CEPHALEXIN 500 MG CAP PO SCH (08:00)
[2019-04-10] MEDS: THIAMINE 100 MG TAB PO SCH (08:00)
[2019-04-10] MEDS: amLODIPine 5 MG TAB PO SCH (08:00)
[2019-04-10 08:04] VITALS: BP 131/58; PULSE 72; RESP 18
[2019-04-10] MEDS ORDERED: CIPROFLOXACIN HCL 500 MG TAB PO SCH (11:06)
[2019-04-10] MEDS ORDERED: CEFEPIME 2 GM in SODIUM CHLORIDE 0.9% 100 ML IVPB SCH (11:15)
[2019-04-10 12:20] LABS: Glucose,Whole Blood 93 mg/dL (75-99)
--- NOTE | 2019-04-10 12:47 | P.DS ---
Providers Date of admission: 04/05/19 15:48 Expected date of discharge: 04/10/19 Attending physician: Sami Webber MD Consults: 04/05/19 16:36 Consult Physician Routine Consulting Provider: Esdras Charles Consult Reason/Comments: H & P and medical care Do you want consulting provider notified?: Yes 04/06/19 13:08 Consult Physician Routine Consulting Provider: Farhad Valadez Consult Reason/Comments: debridement of diabetic ulcer on bottom of right foot Do you want consulting provider notified?: Yes 04/07/19 05:56 Consult Physician Stat Consulting Provider: Colin Odonnell Consult Reason/Comments: Repeat toe culture-deep tissue Do you want consulting provider notified?: Yes Primary care physician: Tim Cesar - Discharge Diagnosis(es) (1) Major depressive disorder Current Visit: Yes Status: Acute Priority: High (2) Alcohol use disorder Current Visit: Yes Status: Acute Priority: High (3) Nicotine dependence Current Visit: Yes Status: Acute Priority: Low Hospital Course: Admission HPI: Patient is a 53-year-old male with a history of depression who currently lives in a house in [place] with his and 1 son, currently employed by [employer]. Patient presented to the hospital after texting a friend saying that he was going to end his life by jumping into the water/[place]. Patient claims that on Wednesday night he was in a pool game in a league at a bar with friends and ended up losing the game. He states that he felt very depres sed after losing the game and went to another bar and drank heavily approximately 6-10 drinks was intoxicated and claimed he was feeling alone. He claims at that time he texted 2 of his friends claiming that she was going to be by the water near the bridge and was going to jump and end his life. He states that he went down to the river and walked near it and had thoughts of jumping in when his friends arrived and brought him into the hospital. Patient states that he has been feeling depressed for years and has previously been put on Paxil which he did not tolerate well. He states that he has had on and off suicidal ideations whenever he gets intoxicated for most of his life. He spoke of stressors at home claiming that he is trying to look for another job and how his finances are very tight trying to support his family. He states that he doesn't have insurance or any benefits with his work. He claims that he is also been thinking about his mother who . Patient admits to decreased concentration, guilt. At this time Patient denies any suicidal or homicidal ideations intent or plan. At this time patient denies any auditory or visual hallucinations. Patient denies any flight of ideas racing thoughts and increased in goal directed behavior. Patient admits to using a significant amount of alcohol 6-10 beers a night and smokes 1 pack of cigarettes per day. He denies any other illicit drug use. Hospital course: Upon admission to the unit patient was initially hostile, irritable and had a depressed affect and mood. Patient was reluctant to engage with treatment and wanted to be discharged, however patient did sign voluntary and agreed to stay to improve his mood. Patient got along well with other patients on the unit and followed unit protocol. Patient was compliant with the medications and denied any side effects throughout hospital course except for minor diarrhea on the first day of starting Zoloft. Patient was started on Zoloft and titrated up to 100 mg daily for mood and anxiety. Patient was also put on CIWA to monitor for any alcohol withdrawal symptoms. Patient spoke of his stressors and engaged in therapy both group and individual. Patient was also seen by medical team for history and physical exam. Patient was found to have a right foot wound/ulcer which an x-ray was performed on admission. Please see x-ray results/impression. Right foot wound culture grew Pseudomonas a., Group B strep, enterococcus f. And "presumptive staph aureus". Patient was placed on by mouth Keflex which then added on ciprofloxacin. Further workup/imaging needs to be done to rule out osteomyelitis. Throughout the course of the hospitalization patient gradually improved with regards to mood, anxiety and became future oriented and hopeful. On the day of discharge patient denied any suicidal or homicidal ideations intent or plan denied any auditory or visual hallucinations. Patient denied any paranoia and did not endorse any delusions. Was discussed in great length and detail about patient's alcohol use disorder and its affect on his physical and mental health and possible interactions with his medications, patient agreed and claimed that he was going to stay sober and did not need any referrals to a rehab or meetings or medications at this time. [Patient was also counseled on the medications and need for regular compliance and was encouraged to follow-up with their outpatient appointment for mental health and also for primary care.] Due to patient's extensive right foot wound/ulcer it was advised by infectious disease and internal medicine attending that patient should be transferred to the medical floors for further workup and treatment of his wound. Mental status exam: General Appearance: [Patient appears to be stated age is alert, pleasant, and cooperative. Patient is in no acute distress and has fair hygiene and grooming] Behavior: [Patient is calmly seated without any agitated behavior.] Speech: Patient's speech is fluent and nonpressured. Mood/Affect: Patient reports their mood is "ok" affect is congruent and euthymic. Suicidality/Homicidality: Patient denies having any suicidal or homicidal ideation intent or plan. Perceptions: Patient denies any auditory or visual hallucinations. Though content/process: There is no evidence of any delusional thought content and thought process is linear and goal-directed. Memory and concentration: AOX3, grossly intact for the purposes of this session. Can spell "WORLD" backwards correctly. Judgment and insight: fair, improved Impression: Major depressive disorder, moderate-severe. Alcohol use disorder Nicotine use disorder Plan: -Continue with discharge today from the mental health unit as patient has improved and stabilized psychiatrically and no longer remains an imminent threat to [himself] and/or others. -Continue medications: Zoloft 100 mg daily for mood and anxiety. Continue with multivitamin and thiamine. -Patient was counseled on the need for medication compliance and appropriate follow-up at mental health and also primary care for medical issues. Patient verbalized understanding and agreed. -Social work to give patient resources and numbers for substance use treatment. clay house worker to perform a family meeting prior to discharge from the unit. and patient were informed that his guns/weapons in the house were to be rem angely from the premise, they both agreed to do so. -Patient counseled on abstaining from recreational drugs and marijuana and alcohol. Was informed/educated on the adverse effects on their physical and mental health. -Due to patient's extensive right foot wound/ulcer it was advised by infectious disease and internal medicine attending that patient should be transferred to the medical floors for further workup and treatment of his wound. Electrician spoke with patient in detail about the outcome of the culture from the wound and the seriousness of the infection which needs to be further treated on the medical floors. Patient agreed and stated that she except the transfer and the treatment and was able to verbalize the risks of not going forth with treatment. At this time patient has the capacity to make decisions on his treatment. -Patient was instructed to return to the hospital or seek immediate medical care if their psychiatric or medical systems do worsen or reoccur. Allergies Allergy/AdvReac Type Severity Reaction Status Date / Time Penicillins Allergy Rash/Hives Verified 04/05/19 16:20 Laboratory Results WBC 7.2 k/uL (3.8-10.6) 04/06/19 08:36 RBC 5.78 m/uL (4.30-5.90) 04/06/19 08:36 Hgb 17.3 gm/dL (13.0-17.5) 04/06/19 08:36 Hct 52.4 % (39.0-53.0) 04/06/19 08:36 MCV 90.7 fL (80.0-100.0) 04/06/19 08:36 MCH 30.0 pg (25.0-35.0) 04/06/19 08:36 MCHC 33.1 g/dL (31.0-37.0) 04/06/19 08:36 RDW 12.9 % (11.5-15.5) 04/06/19 08:36 Plt Count 274 k/uL (150-450) 04/06/19 08:36 Neutrophils % 67 % 04/06/19 08:36 Lymphocytes % 21 % 04/06/19 08:36 Monocytes % 8 % 04/06/19 08:36 Eosinophils % 3 % 04/06/19 08:36 Basophils % 1 % 04/06/19 08:36 Neutrophils # 4.8 k/uL (1.3-7.7) 04/06/19 08:36 Lymphocytes # 1.5 k/uL (1.0-4.8) 04/06/19 08:36 Monocytes # 0.5 k/uL (0-1.0) 04/06/19 08:36 Eosinophils # 0.2 k/uL (0-0.7) 04/06/19 08:36 Basophils # 0.1 k/uL (0-0.2) 04/06/19 08:36 ESR 2 mm/hr (0-15) 04/06/19 08:36 Sodium 140 mmol/L (137-145) 04/06/19 08:36 Potassium 4.6 mmol/L (3.5-5.1) 04/06/19 08:36 Chloride 105 mmol/L (98-107) 04/06/19 08:36 Carbon Dioxide 29 mmol/L (22-30) 04/06/19 08:36 Anion Gap 6 mmol/L 04/06/19 08:36 BUN 17 mg/dL (9-20) 04/06/19 08:36 Creatinine 0.91 mg/dL (0.66-1.25) 04/06/19 08:36 Est GFR (CKD-EPI)AfAm >90 (>60 ml/min/1.73 sqM) 04/06/19 08:36 Est GFR (CKD-EPI)NonAf >90 (>60 ml/min/1.73 sqM) 04/06/19 08:36 Glucose 129 mg/dL (74-99) H 04/06/19 08:36 POC Glucose (mg/dL) 93 mg/dL (75-99) 04/10/19 12:18 POC Glu Clinical Appeals Reviewer ID [place], [place] 04/10/19 12:[address] Glu mg/dL 174 04/06/19 08:36 Hemoglobin A1c 7.7 % (4.0-6.0) H 04/06/19 08:36 Calcium 9.0 mg/dL (8.4-10.2) 04/06/19 08:36 Total Bilirubin 2.1 mg/dL (0.2-1.3) H 04/07/19 10:22 Conjugated Bilirubin 0.0 mg/dL (0.0-0.3) 04/07/19 10:22 Unconjugated Bilirubin 1.7 mg/dL (0.0-1.1) H 04/07/19 10:22 Delta Bilirubin 0.4 mg/dL (0.0-0.2) H 04/07/19 10:22 AST 35 U/L (17-59) 04/07/19 10:22 ALT 32 U/L (21-72) 04/07/19 10:22 Alkaline Phosphatase 67 U/L (38-126) 04/07/19 10:22 C-Reactive Protein 6.8 mg/L (<10.0) 04/06/19 08:36 Total Protein 6.9 g/dL (6.3-8.2) 04/07/19 10:22 Albumin 3.9 g/dL (3.5-5.0) 04/07/19 10:22 Triglycerides 135 mg/dL (<150) 04/06/19 08:36 Cholesterol 164 mg/dL (<200) 04/06/19 08:36 LDL Cholesterol, Calc 99 mg/dL (0-99) 04/06/19 08:36 HDL Cholesterol 38 mg/dL (40-60) L 04/06/19 08:36 TSH 1.080 mIU/L (0.465-4.680) 04/06/19 08:36 Urine Color Light Yellow 04/05/19 05:20 Urine Appearance Clear (Clear) 04/05/19 05:20 Urine pH 5.0 (5.0-8.0) 04/05/19 05:20 Ur Specific Sulphur 1.019 (1.001-1.035) 04/05/19 05:20 Urine Protein Negative (Negative) 04/05/19 05:20 Urine Glucose (UA) 4+ (Negative) H 04/05/19 05:20 Urine Ketones Negative (Negative) 04/05/19 05:20 Urine Blood Trace (Negative) H 04/05/19 05:20 Urine Nitrite Negative (Negative) 04/05/19 05:20 Urine Bilirubin Negative (Negative) 04/05/19 05:20 Urine Urobilinogen <2.0 mg/dL (<2.0) 04/05/19 05:20 Ur Leukocyte Esterase Negative (Negative) 04/05/19 05:20 Urine RBC 1 /hpf (0-5) 04/05/19 05:20 Urine WBC 1 /hpf (0-5) 04/05/19 05:20 Urine Mucus Rare /hpf (None) H 04/05/19 05:20 Urine Opiates Screen Not Detected (NotDetected) 04/05/19 05:20 Ur Oxycodone Screen Not Detected (NotDetected) 04/05/19 05:20 Urine Methadone Screen Not Detected (NotDetected) 04/05/19 05:20 Ur Propoxyphene Screen Not Detected (NotDetected) 04/05/19 05:20 Ur Barbiturates Screen Not Detected (NotDetected) 04/05/19 05:20 U Tricyclic Antidepress Not Detected (NotDetected) 04/05/19 05:20 Ur Phencyclidine Scrn Not Detected (NotDetected) 04/05/19 05:20 Ur Amphetamines Screen Not Detected (NotDetected) 04/05/19 05:20 U Methamphetamines Scrn Not Detected (NotDetected) 04/05/19 05:20 U Benzodiazepines Scrn Not Detected (NotDetected) 04/05/19 05:20 Urine Cocaine Screen Not Detected (NotDetected) 04/05/19 05:20 U Marijuana (THC) Screen Not Detected (NotDetected) 04/05/19 05:20 Vital Signs Temp 98.1 F 04/10/19 06:28 Pulse 72 04/10/19 08:03 Resp 18 04/10/19 08:03 BP 131/58 04/10/19 08:03 Pulse Ox 94 L 04/05/19 12:29 Intake & Output 04/09/19 04/10/19 04/10/19 18:59 06:59 18:59 Weight 95.8 kg Patient Condition at Discharge: Stable Plan - Discharge Summary Discharge Rx Participant: No New Discharge Prescriptions: New Cephalexin [Keflex] 500 mg PO TID cap Multivitamins, Thera [Multivitamin (formulary)] 1 each PO DAILY tab Thiamine [Vitamin B-1] 100 mg PO DAILY tab Sertraline [Zoloft] 100 mg PO DAILY tab Continue Dulaglutide [Trulicity] 1.5 mg SQ Q7D Nicotine [Nicotrol] 1 puff INHALATION RT-Q1H PRN MDD 16 PUFFS PRN Reason: Nicotine Cravings Insulin Degludec [Tresiba Flextouch U-200] 40 units SQ DAILY amLODIPine [Norvasc] 5 mg PO DAILY Losartan Potassium [Cozaar] 100 mg PO DAILY Empagliflozin [Jardiance] 25 mg PO DAILY Discharge Medication List Dulaglutide [Trulicity] 1.5 mg SQ Q7D 04/05/19 [History] Empagliflozin [Jardiance] 25 mg PO DAILY 04/05/19 [History] Insulin Degludec [Tresiba Flextouch U-200] 40 units SQ DAILY 04/05/19 [History] Losartan Potassium [Cozaar] 100 mg PO DAILY 04/05/19 [History] Nicotine [Nicotrol] 1 puff INHALATION RT-Q1H PRN MDD 16 PUFFS 04/05/19 [History] amLODIPine [Norvasc] 5 mg PO DAILY 04/05/19 [History] Cephalexin [Keflex] 500 mg PO TID cap 04/10/19 [Rx] Multivitamins, Thera [Multivitamin (formulary)] 1 each PO DAILY tab 04/10/19 [Rx] Sertraline [Zoloft] 100 mg PO DAILY tab 04/10/19 [Rx] Thiamine [Vitamin B-1] 100 mg PO DAILY tab 04/10/19 [Rx] Follow up Appointment(s)/Referral(s): [facility] [Outside] - 04/13/19 5:00 pm ([place]) Tim Cesar DO [Primary Care Provider] - 1-2 days Colin Odonnell MD [STAFF PHYSICIAN] - 04/18/19 2:30 pm Patient Instructions/Handouts: Depression (DC), Abuse of Alcohol (DC), At-Risk Alcohol Use (DC), Help Prevent Suicide (DC), Suicide Prevention (ED) Activity/Diet/Wound Care/Special Instructions: Activity and diet as tolerated. No guns or weapons in the home. Refrain from alcohol and street drugs not prescribed by your physician. Take all medications as prescribed, and attend all follow up appointments as scheduled. If in need of medication refills, please go to your out patient psychiatrist, or primary care physician. If in crisis, please go to the nearest ER for an evaluation, or call the crisis line at . Follow up with Dr. Odonnell in one week after discharge for right foot. Continue the Cipro 500mg one tablet twice a day and Keflex 500mg three times a day. Discharge Disposition: HOME SELF-CARE
--- NOTE | 2019-04-10 13:19 | P.PN ---
Subjective This is a pleasant 53 years old male with past medical history of diabetes mellitus. He presents to the mental health unit for suicidal ideation, he told his her friend he was considering jumping into the urinary bladder. Medical team has been consulted for A, management and for right foot ulcer. Patient denies chest pain or dyspnea. No abdominal pain or nausea vomiting. No upper respiratory infection. No dysuria. No change in urine or bowel habit. No fever. Patient has been evaluated by ID team and he was started on oral antibiotics. Foot x-ray showing extensive postsurgical changes with arthropathy of the first meta-tarsophalangeal joint. No acute fracture or dislocation., Chronic deformity of the proximal phalanx of the second toe. Patient is currently on Cipro antibiotics and Keflex. Objective - Vital Signs Vital signs: Vital Signs Temp 98.1 F 04/10/19 06:28 Pulse 72 04/10/19 08:03 Resp 18 04/10/19 08:03 BP 131/58 04/10/19 08:03 Pulse Ox 94 L 04/05/19 12:29 Intake & Output 04/09/19 04/10/19 04/10/19 18:59 06:59 18:59 Weight 95.8 kg - Exam GENERAL: The patient is alert and oriented x3, not in any acute distress. Well developed, well nourished. HEENT: Pupils are round and equally reacting to light. EOMI. No scleral icterus. No conjunctival pallor. Normocephalic, atraumatic. No pharyngeal erythema. No thyromegaly. CARDIOVASCULAR: S1 and S2 present. No murmurs, rubs, or gallops. PULMONARY: Chest is clear to auscultation, no wheezing or crackles. ABDOMEN: Soft, nontender, nondistended, normoactive bowel sounds. No palpable organomegaly. MUSCULOSKELETAL: No joint swelling or deformity. -EXTREMITIES: No cyanosis, clubbing, or pedal edema. Right foot diabetic ulcer, on the bottom of the first/big toe, on the sole. With pale Yellowish discoloration underneath the skin, which basically looks the same. There is a new shallow ulcer on the tip of the second toe. NEUROLOGICAL: Gross neurological examination did not reveal any focal deficits. SKIN: No rashes. Gait: Walks without difficulty. - Labs CBC & Chem 7: 04/06/19 08:36 04/06/19 08:36 Labs: Abnormal Lab Results - Last 24 Hours (Table) 04/09/19 04/09/19 04/10/19 Range/Units 17:34 20:03 07:39 POC Glucose (mg/dL) 101 H 212 H 74 L (75-99) mg/dL Microbiology - Last 24 Hours (Table) 04/07/19 12:22 Gram Stain - Preliminary Foot - Right Wound Culture - Preliminary Pseudomonas aeruginosa Strep agalactiae - (group b) Enterococcus faecalis Presumptive Staph aureus Assessment and Plan Assessment: Major depression and other psychiatric illnesses, management as per second primary team. Right foot diabetic ulcer. Wound culture is positive with many microorganisms including Pseudomonas, strep agalactiae, enterococcus and staph aureus. Type 2 diabetes mellitus possible medication on [place], discharge events and traesiba 40 units Hypertension Nicotine dependence Plan: This is a pleasant 53 years old male who presents to the psychiatric unit for depression. Also he has right foot diabetic ulcer. Patient wounds showing minimal, organism, patient will need further evaluation for possible intravenous antibiotics. And also vascular surgery evaluation. Discussed the case with the patient and he agrees with transfer to the general medical floor. Risks and including but not limited to losing the foot with amputation, sepsis and are explained to the patient and he verbalized understanding and acceptance. Discussed the case with the admitting physician and he agrees with this plan. Patient looks like he is going to be clear and psychiatry for discharge today. We're going to admit him to the general medical floor for further care.Labs and medication were reviewed.. Continue same treatment. Continue with symptomatic treatment. Resume home medication. Monitor lytes and vitals. DVT and GI prophylaxis. Further recommendations of the clinical course of the patient DVT prophylaxis: Patient is mobile and his low-risk for DVT. Discussed with the psych attending, bedside staff and admitting to transfer the patient.
--- NOTE | 2019-04-10 15:56 | PN ---
PROGRESS NOTE DATE OF SERVICE: 04/10/2019 REASON FOR FOLLOWUP: Right diabetic foot wound and cellulitis. INTERVAL HISTORY: The patient is currently afebrile. The patient is breathing comfortably. He did have some discomfort in the right foot and also now developed a wound on the tip of his right second toe since last evaluation. No history of any trauma. No nausea. No vomiting. No abdominal pain or diarrhea. PHYSICAL EXAMINATION: Blood pressure 131/58 with a pulse of 72, temperature 98.1. General description is a middle-aged male up in the bed in no distress. EXAMINATION OF THE RIGHT FOOT: Minimal swelling, redness. No drainage. Wound on the right second toe new. LABS: Wound cultures show multiple pathogens. DIAGNOSTIC IMPRESSION AND PLAN: Patient with a right diabetic foot wound from a callus with multiple pathogens. Oral Cipro has been added. Only medication interacting was Geodon, which apparently is not going to be continued on discharge. The patient has been advised admission to the hospital for IV antibiotic therapy and to be evaluated by Vascular Surgery for possible debridement. Questions and concerns were answered. MMODL / IJN: [id number] /
[2019-04-10] MEDS ORDERED: CEPHALEXIN 500 MG CAP PO SCH (16:00)
== END 2019-04-10 14:30 | disposition home or self-care (01) | DRG 885 ==
LOC: EC 04:45 → 3MHU 15:48
PROVIDERS: ADMIT Psychiatry & Neurology Psychiatry; ATTEND Psychiatry & Neurology Psychiatry
DX: F32.1 Major depressive disorder, single episode, moderate (principal); F10.239 Alcohol dependence with withdrawal, unspecified; L03.115 Cellulitis of right lower limb; R45.851 Suicidal ideations; B96.5 Pseudomonas (aeruginosa) (mallei) (pseudomallei) as the cause of diseases classified elsewhere; E11.40 Type 2 diabetes mellitus with diabetic neuropathy, unspecified; E11.621 Type 2 diabetes mellitus with foot ulcer; E78.5 Hyperlipidemia, unspecified; F10.229 Alcohol dependence with intoxication, unspecified; F17.200 Nicotine dependence, unspecified, uncomplicated; F41.9 Anxiety disorder, unspecified; I10 Essential (primary) hypertension; L97.519 Non-pressure chronic ulcer of other part of right foot with unspecified severity; M12.9 Arthropathy, unspecified; Z79.4 Long term (current) use of insulin; Z79.899 Other long term (current) drug therapy; Z88.0 Allergy status to penicillin
CPT/HCPCS: 36415; 80053; 80061; 80076; 80306; 81001; 82075; 82248; 83036; 84443; 85025; 85652; 86140; 87070; 87077; 87186; 87205; 99285

== ENCOUNTER 2019-04-10 13:05 | Inpatient (IN) | payer BC ==
[2019-04-10 16:46] VITALS: BMI 30.2
[2019-04-10] MEDS ORDERED: VANCOMYCIN IV PER PHARMACY 1 EACH MISC MISCELLANE PRN (17:41)
[2019-04-10] MEDS: SODIUM CHLORIDE 0.9% 1,000 ML IV SCH (18:30)
[2019-04-10] MEDS: VANCOMYCIN 1,500 MG in SODIUM CHLORIDE 0.9% 250 ML IVPB SCH (18:36)
[2019-04-10 20:28] LABS: Glucose,Whole Blood 177 mg/dL (75-99)
[2019-04-10] MEDS: HEPARIN SODIUM,PORCINE 5,000 UNIT/ML 1 ML VIAL SQ SCH (21:45)
[2019-04-10] MEDS: CEFEPIME 2 GM in SODIUM CHLORIDE 0.9% 100 ML IVPB SCH (23:42)
[2019-04-11] MEDS: VANCOMYCIN 1,500 MG in SODIUM CHLORIDE 0.9% 250 ML IVPB SCH ×3 (05:12→20:59)
[2019-04-11 07:02] LABS: Glucose,Whole Blood 61 mg/dL (75-99)
[2019-04-11 07:26] LABS: Glucose,Whole Blood 90 mg/dL (75-99)
[2019-04-11 08:11] LABS: Basophils # (A) 0.1 k/uL (0-0.2); Basophils % (A) 1 %; Eosinophils # (A) 0.2 k/uL (0-0.7); Eosinophils % (A) 3 %; HCT 49.7 % (39.0-53.0); HGB 16.5 gm/dL (13.0-17.5); Lymphocytes # (A) 1.5 k/uL (1.0-4.8); Lymphocytes % (A) 22 %; MCH 29.8 pg (25.0-35.0); MCHC 33.2 g/dL (31.0-37.0); MCV 89.6 fL (80.0-100.0); Mean Platelet Volume 7.1; Monocytes # (A) 0.5 k/uL (0-1.0); Monocytes % (A) 6 %; Neutrophils # (A) 4.7 k/uL (1.3-7.7); Neutrophils % (A) 66 %; Platelet Count 230 k/uL (150-450); RBC 5.55 m/uL (4.30-5.90); RDW 13.1 % (11.5-15.5)
[2019-04-11 08:19] LABS: Partial Thromboplastin Time 25.3 sec (22.0-30.0); Prothrombin Time 10.9 sec (9.0-12.0)
[2019-04-11 08:31] LABS: ALT 39 U/L (21-72); AST 36 U/L (17-59); African American GFR (CKD) >90 (>60 ml/min/1.73 sqM); Albumin 3.6 g/dL (3.5-5.0); Alkaline Phosphatase 59 U/L (38-126); Anion Gap 7 mmol/L; Bilirubin, Delta 0.3 mg/dL (0.0-0.2); Bilirubin,Unconjugated 1.5 mg/dL (0.0-1.1); Blood Urea Nitrogen 21 mg/dL (9-20); Calcium 8.7 mg/dL (8.4-10.2); Carbon Dioxide 26 mmol/L (22-30); Chloride 106 mmol/L (98-107); Glucose 96 mg/dL (74-99); Potassium 4.9 mmol/L (3.5-5.1); Sodium 139 mmol/L (137-145); Total Bilirubin 1.8 mg/dL (0.2-1.3); Total Protein 6.6 g/dL (6.3-8.2)
[2019-04-11] MEDS: SODIUM CHLORIDE 0.9% 1,000 ML IV SCH ×2 (08:43→17:41)
[2019-04-11] MEDS: amLODIPine 5 MG TAB PO SCH (08:43)
[2019-04-11] MEDS: LOSARTAN 50 MG TAB PO SCH (08:43)
[2019-04-11] MEDS: MULTIVITAMINS, THERA 1 EACH TAB PO SCH (08:43)
[2019-04-11] MEDS: SERTRALINE 100 MG TAB PO SCH (08:43)
[2019-04-11] MEDS: THIAMINE 100 MG TAB PO SCH (08:43)
[2019-04-11] MEDS: NICOTINE 14MG/24HR PATCH TRANSDERM SCH (08:43)
[2019-04-11] MEDS: HEPARIN SODIUM,PORCINE 5,000 UNIT/ML 1 ML VIAL SQ SCH ×2 (08:44→20:58)
[2019-04-11] MEDS: CEFEPIME 2 GM in SODIUM CHLORIDE 0.9% 100 ML IVPB SCH ×3 (08:45→23:26)
[2019-04-11] MEDS: INSULIN DETEMIR (LEVEMIR) 100 UNIT/ML SYR SQ SCH (08:55)
[2019-04-11 08:56] LABS: Glucose,Whole Blood 139 mg/dL (75-99)
[2019-04-11] MEDS: Empagliflozin [Jardiance] PO SCH (12:13)
[2019-04-11 12:26] LABS: Glucose,Whole Blood 107 mg/dL (75-99)
--- NOTE | 2019-04-11 13:19 | P.HPIM ---
History of Present Illness This is a pleasant 53 years old male with past medical history of diabetes mellitus. He presents to the mental health unit for suicidal ideation, patient also was complaining from right foot ulcer going on for a few days. On exami nation patient looks hadn't yellowish discolorations with infection of the sole of the first toe base, and later on developed ulcer on the tip of the second toe, patient was started on Keflex with some improvement over the culture came back positive with many microorganisms including Pseudomonas, stripped agalactiae , therefore patient was transferred to the general medical floor, he was started on parenteral vancomycin, cefepime and IV normal saline with vascular surgeon and infectious disease teams consulted . Patient was cleared by psychiatrist team for discharge per to transfer the patient. this morning patient sugar was in the 40s, however patient's wants to keep his 40 units of Levemir because his doctor asked him to, he says because his diet onset is different than in the hospital. Risks and benefits and alternatives are explained to the patient. He was instructed to consume more sugar at bedtime and he agrees. Review of Systems CONSTITUTIONAL: No fever, no malaise, no fatigue. HEENT: No recent visual problems or hearing problems. Denied any sore throat. CARDIOVASCULAR: No orthopnea, PND, no palpitations, no syncope. PULMONARY: No shortness of breath, no cough, no hemoptysis. GASTROINTESTINAL: No diarrhea, no nausea, no vomiting, no abdominal pain. Normoactive bowel sounds. NEUROLOGICAL: No headaches, no weakness, no numbness. HEMATOLOGICAL: Denies any bleeding or petechiae. GENITOURINARY: Denies any burning micturition, frequency, or urgency. MUSCULOSKELETAL/RHEUMATOLOGICAL: Denies any joint pain, swelling, or any muscle pain. ENDOCRINE: Denies any polyuria or polydipsia. Past Medical History Past Medical History: Diabetes Mellitus, Eye Disorder, Hypertension, Skin Disorder Additional Past Medical History / Comment(s): IDDM type II, bilateral retinal b haile, current R foot wound/ulcer, DDD-cervical and lower back/neuropathy lower legs/feet, bronchitis, UTI, colitis as a child. History of Any Multi-Drug Resistant Organisms: None Reported Additional Past Surgical History / Comment(s): right foot bunion removal and hammer toe fixed, colonoscopy. Smoking Status: Current every day smoker - Past Family History Mother Family Medical History: Diabetes Mellitus Additional Family Medical History / Comment(s): Mother from diabetic complications. Father Family Medical History: Cancer Additional Family Medical History / Comment(s): Father of lung cancer. He was a smoker. Medications and Allergies Home Medications Medication Instructions Recorded Confirmed Type Dulaglutide [Trulicity] 1.5 mg SQ Q7D 04/05/19 04/10/19 History Empagliflozin [Jardiance] 25 mg PO DAILY 04/05/19 04/10/19 History Insulin Degludec [Tresiba 40 units SQ DAILY 04/05/19 04/10/19 History Flextouch U-200] Losartan Potassium [Cozaar] 100 mg PO DAILY 04/05/19 04/10/19 History Nicotine [Nicotrol] 1 puff INHALATION RT-Q1H PRN MDD 04/05/19 04/10/19 History 16 PUFFS amLODIPine [Norvasc] 5 mg PO DAILY 04/05/19 04/10/19 History Cephalexin [Keflex] 500 mg PO TID cap 04/10/19 04/10/19 Rx Multivitamins, Thera [Multivitamin 1 tab PO DAILY 04/10/19 04/10/19 History (formulary)] Sertraline [Zoloft] 100 mg PO DAILY tab 04/10/19 04/10/19 Rx Thiamine [Vitamin B-1] 100 mg PO DAILY tab 04/10/19 04/10/19 Rx Allergies Allergy/AdvReac Type Severity Reaction Status Date / Time Penicillins Allergy Rash/Hives Verified 04/10/19 15:01 Physical Exam Vitals: Vital Signs Temp Pulse Resp BP Pulse Ox 04/11/19 05:00 98.1 F 62 18 136/72 97 04/10/19 23:00 98.1 F 69 18 133/73 98 04/10/19 14:40 100.2 F H 71 18 155/78 96 Intake and Output 04/10/19 04/11/19 04/11/19 22:59 06:59 14:59 Intake Total 500 0 Balance 500 0 Intake: Oral 500 0 Other: # Voids 1 1 2 Weight 95.254 kg GENERAL: The patient is alert and oriented x3, not in any acute distress. Well developed, well nourished. HEENT: Pupils are round and equally reacting to light. EOMI. No scleral icterus. No conjunctival pallor. Normocephalic, atraumatic. No pharyngeal erythema. No thyromegaly. CARDIOVASCULAR: S1 and S2 present. No murmurs, rubs, or gallops. PULMONARY: Chest is clear to auscultation, no wheezing or crackles. ABDOMEN: Soft, nontender, nondistended, normoactive bowel sounds. No palpable organomegaly. MUSCULOSKELETAL: No joint swelling or deformity. -EXTREMITIES: No cyanosis, clubbing, or pedal edema. Right foot diabetic ulcer, on the bottom of the first/big toe, on the sole. With pale Yellowish discoloration underneath the skin. There is an ulcer at the tip of the second toe NEUROLOGICAL: Gross neurological examination did not reveal any focal deficits. SKIN: No rashes. Results CBC & Chem 7: 04/11/19 07:41 04/11/19 07:41 Labs: Abnormal Lab Results - Last 24 Hours (Table) 04/10/19 04/11/19 04/11/19 Range/Units 20:15 06:57 07:41 BUN 21 H (9-20) mg/dL POC Glucose (mg/dL) 177 H 61 L (75-99) mg/dL Total Bilirubin 1.8 H (0.2-1.3) mg/dL Unconjugated Bilirubin 1.5 H (0.0-1.1) mg/dL Delta Bilirubin 0.3 H (0.0-0.2) mg/dL 04/11/19 04/11/19 Range/Units 08:53 11:57 BUN (9-20) mg/dL POC Glucose (mg/dL) 139 H 107 H (75-99) mg/dL Total Bilirubin (0.2-1.3) mg/dL Unconjugated Bilirubin (0.0-1.1) mg/dL Delta Bilirubin (0.0-0.2) mg/dL Thrombosis Risk Factor Assmnt - Choose All That Apply Each Factor Represents 1 point: Age 41-60 years Other Risk Factors: No Other congenital or acquired thrombophilia - If yes, enter type in comment: No Thrombosis Risk Factor Assessment Total Risk Factor Score: 1 Thrombosis Risk Factor Assessment Level: Low Risk Assessment and Plan Assessment: Right foot diabetic ulcer with multiple organisms including pseudomonas, en terococcus and staph aureus as well as strep agalactiae. Type 2 diabetes mellitus on insulin therapy Major depression disorder, recently discharged from the psych unit. Not an active issue Alcohol use disorder Nicotine dependence Plan: This is a pleasant 53 years old male who presents with diabetic right foot ulcer. Continue with antibiotics. Follow-up recommendation with infectious disease and vascular surgeons. FloSeal and swelling of home dose and monitor sugar level. Labs and medication were reviewed.. Continue same treatment. Continue with symptomatic treatment. Resume home medication. Monitor lytes and vitals. DVT and GI prophylaxis. Further recommendations of the clinical course of the patient DVT prophylaxis: Subcutaneous heparin GI Prophylaxis: Pepcid PT/OT: Pending Prognosis is guarded
[2019-04-11 17:24] LABS: Glucose,Whole Blood 218 mg/dL (75-99)
--- NOTE | 2019-04-11 19:39 | P.GSCN ---
History of Present Illness Consult date: 04/11/19 History of present illness: The patient is a 53-year-old male with a past medical history of diabetes. He initially presented to the mental health unit after suicidal ideation. He recently developed a wound of his right second toe distally at the tip. He also has a area of callus to his plantar portion of his foot. He says he has had this for a long time is only worsened recently. In the past he has had shave down on multiple occasions. He denies any fevers, chills, nausea, vomiting or pain in his foot. He doesn't have full sensation of his feet Review of Systems 14 point review of systems is performed. Pertinent positives and negatives per the HPI Past Medical History Past Medical History: Diabetes Mellitus, Eye Disorder, Hypertension, Skin Disorder Additional Past Medical History / Comment(s): IDDM type II, bilateral retinal bleeds, current R foot wound/ulcer, DDD-cervical and lower back/neuropathy lower legs/feet, bronchitis, UTI, colitis as a child. History of Any Multi-Drug Resistant Organisms: None Reported Additional Past Surgical History / Comment(s): right foot bunion removal and hammer toe fixed, colonoscopy. Smoking Status: Current every day smoker - Past Family History Mother Family Medical History: Diabetes Mellitus Additional Family Medical History / Comment(s): Mother from diabetic complications. Father Family Medical History: Cancer Additional Family Medical History / Comment(s): Father of lung cancer. He was a smoker. Medications and Allergies Home Medications Medication Instructions Recorded Confirmed Type Dulaglutide [Trulicity] 1.5 mg SQ Q7D 04/05/19 04/10/19 History Empagliflozin [Jardiance] 25 mg PO DAILY 04/05/19 04/10/19 History Insulin Degludec [Tresiba 40 units SQ DAILY 04/05/19 04/10/19 History Flextouch U-200] Losartan Potassium [Cozaar] 100 mg PO DAILY 04/05/19 04/10/19 History Nicotine [Nicotrol] 1 puff INHALATION RT-Q1H PRN MDD 04/05/19 04/10/19 History 16 PUFFS amLODIPine [Norvasc] 5 mg PO DAILY 04/05/19 04/10/19 History Cephalexin [Keflex] 500 mg PO TID cap 04/10/19 04/10/19 Rx Multivitamins, Thera [Multivitamin 1 tab PO DAILY 04/10/19 04/10/19 History (formulary)] Sertraline [Zoloft] 100 mg PO DAILY tab 04/10/19 04/10/19 Rx Thiamine [Vitamin B-1] 100 mg PO DAILY tab 04/10/19 04/10/19 Rx Allergies Allergy/AdvReac Type Severity Reaction Status Date / Time Penicillins Allergy Rash/Hives Verified 04/10/19 15:01 Surgical - Exam Vital Signs Temp Pulse Resp BP Pulse Ox 100.2 F H 71 18 155/78 96 04/10/19 14:40 04/10/19 14:40 04/10/19 14:40 04/10/19 14:40 04/10/19 14:40 Gen. is a well-developed well-nourished male in no acute distress HEENT is normocephalic atraumatic extraocular motion intact Heart is regular in rate and rhythm Lungs are clear bilaterally Abdomen soft nontender nondistended Extremities are warm and well-perfused. On the right second toe there is a small ulceration that his sclerae superficial. There is a significant callus on the right plantar portion of the foot. This is debrided at bedside. The area was cleansed with alcohol and utilizing a scalpel the heart callus was debrided leaving a wound measuring 3 x 2.8 cm x 0.1. This is debrided to healthy, soft tissue Vascular Palpable radial femoral dorsalis pedis and posterior tibial pulses bilaterally Results - Labs 04/11/19 07:41 04/11/19 07:41 Abnormal Lab Results - Last 24 Hours (Table) 04/10/19 04/11/19 04/11/19 Range/Units 20:15 06:57 07:41 BUN 21 H (9-20) mg/dL POC Glucose (mg/dL) 177 H 61 L (75-99) mg/dL Total Bilirubin 1.8 H (0.2-1.3) mg/dL Unconjugated Bilirubin 1.5 H (0.0-1.1) mg/dL Delta Bilirubin 0.3 H (0.0-0.2) mg/dL 04/11/19 04/11/19 04/11/19 Range/Units 08:53 11:57 17:06 BUN (9-20) mg/dL POC Glucose (mg/dL) 139 H 107 H 218 H (75-99) mg/dL Total Bilirubin (0.2-1.3) mg/dL Unconjugated Bilirubin (0.0-1.1) mg/dL Delta Bilirubin (0.0-0.2) mg/dL Diabetes panel 04/11/19 Range/Units 07:41 Sodium 139 (137-145) mmol/L Potassium 4.9 (3.5-5.1) mmol/L Chloride 106 (98-107) mmol/L Carbon Dioxide 26 (22-30) mmol/L BUN 21 H (9-20) mg/dL Creatinine 0.82 (0.66-1.25) mg/dL Glucose 96 (74-99) mg/dL Calcium 8.7 (8.4-10.2) mg/dL AST 36 (17-59) U/L ALT 39 (21-72) U/L Alkaline Phosphatase 59 (38-126) U/L Total Protein 6.6 (6.3-8.2) g/dL Albumin 3.6 (3.5-5.0) g/dL Calcium panel 04/11/19 Range/Units 07:41 Calcium 8.7 (8.4-10.2) mg/dL Albumin 3.6 (3.5-5.0) g/dL Pituitary panel 04/11/19 Range/Units 07:41 Sodium 139 (137-145) mmol/L Potassium 4.9 (3.5-5.1) mmol/L Chloride 106 (98-107) mmol/L Carbon Dioxide 26 (22-30) mmol/L BUN 21 H (9-20) mg/dL Creatinine 0.82 (0.66-1.25) mg/dL Glucose 96 (74-99) mg/dL Calcium 8.7 (8.4-10.2) mg/dL Adrenal panel 04/11/19 Range/Units 07:41 Sodium 139 (137-145) mmol/L Potassium 4.9 (3.5-5.1) mmol/L Chloride 106 (98-107) mmol/L Carbon Dioxide 26 (22-30) mmol/L BUN 21 H (9-20) mg/dL Creatinine 0.82 (0.66-1.25) mg/dL Glucose 96 (74-99) mg/dL Calcium 8.7 (8.4-10.2) mg/dL Total Bilirubin 1.8 H (0.2-1.3) mg/dL AST 36 (17-59) U/L ALT 39 (21-72) U/L Alkaline Phosphatase 59 (38-126) U/L Total Protein 6.6 (6.3-8.2) g/dL Albumin 3.6 (3.5-5.0) g/dL Assessment and Plan Assessment: #1 right second toe ulceration #2 right plantar wound/callus #3 diabetes Plan: At this point there does not appear to be any vascular issue. The callus unroofing did not reveal any further ulceration. At this time would continue local wound care for the second digit. No further vascular intervention is planned. As an outpatient he would recommend he follow back up with his check weigher that he is seen in the past who has done shaving of his callus for him. Continue appropriate blood sugar control Thank you for allowing me to participate in the care of this patient
[2019-04-11 20:48] LABS: Glucose,Whole Blood 166 mg/dL (75-99)
--- NOTE | 2019-04-11 22:42 | P.CONS ---
History of Present Illness - Reason for Consult Consult date: 04/11/19 Right diabetic foot wound and cellulitis Requesting physician: Greyson E Sheet - Chief Complaint Wound on the plantar aspect of the right foot and second toe x few days - History of Present Illness Patient is a 53-year-old male who was recently admitted at [facility] psych unit for suicidal ideation at that point the patient was noticed to have wound on the plantar aspect of his right foot at the base of the metatarsal head and the patient did have a history of callus with recently mariusz with some evidence of pustule formation he did have local cultures obtained and was empirically treated with the Keflex subsequently the culture were finalized with multiple pathogens including Pseudomonas and MSSA as well as enterococcus x-rays were negative for any bony destruction patient subsequently was admitted to medical unit after discharge from psych unit for evaluation of his right diabetic foot wound possible surgical debridement and IV antibiotics Patient on admission Hospital did have low-grade fever 100.2 the his white count is normal patient did have slight discomfort and right foot wound area after the leg and pain 1-2 out of 10 and no radiation he did have minimal surrounding swelling and redness but no foul-smelling drainage currently tolerating cefepime and vancomycin and no diarrhea with antibiotic therapy Review of Systems Positive points has been mentioned in HPI rest of the systems are negative Past Medical History Past Medical History: Diabetes Mellitus, Eye Disorder, Hypertension, Skin Disorder Additional Past Medical History / Comment(s): IDDM type II, bilateral retinal bleeds, current R foot wound/ulcer, DDD-cervical and lower back/neuropathy lower legs/feet, bronchitis, UTI, colitis as a child. History of Any Multi-Drug Resistant Organisms: None Reported Additional Past Surgical History / Comment(s): right foot bunion removal and hammer toe fixed, colonoscopy. Smoking Status: Current every day smoker - Past Family History Mother Family Medical History: Diabetes Mellitus Additional Family Medical History / Comment(s): Mother from diabetic complications. Father Family Medical History: Cancer Additional Family Medical History / Comment(s): Father of lung cancer. He was a smoker. Medications and Allergies Home Medications Medication Instructions Recorded Confirmed Type Dulaglutide [Trulicity] 1.5 mg SQ Q7D 04/05/19 04/10/19 History Empagliflozin [Jardiance] 25 mg PO DAILY 04/05/19 04/10/19 History Insulin Degludec [Tresiba 40 units SQ DAILY 04/05/19 04/10/19 History Flextouch U-200] Losartan Potassium [Cozaar] 100 mg PO DAILY 04/05/19 04/10/19 History Nicotine [Nicotrol] 1 puff INHALATION RT-Q1H PRN MDD 04/05/19 04/10/19 History 16 PUFFS amLODIPine [Norvasc] 5 mg PO DAILY 04/05/19 04/10/19 History Cephalexin [Keflex] 500 mg PO TID cap 04/10/19 04/10/19 Rx Multivitamins, Thera [Multivitamin 1 tab PO DAILY 04/10/19 04/10/19 History (formulary)] Sertraline [Zoloft] 100 mg PO DAILY tab 04/10/19 04/10/19 Rx Thiamine [Vitamin B-1] 100 mg PO DAILY tab 04/10/19 04/10/19 Rx Allergies Allergy/AdvReac Type Severity Reaction Status Date / Time Penicillins Allergy Rash/Hives Verified 04/10/19 15:01 Physical Exam Vitals: Vital Signs Temp Pulse Resp BP Pulse Ox 04/11/19 05:00 98.1 F 62 18 136/72 97 04/10/19 23:00 98.1 F 69 18 133/73 98 04/10/19 14:40 100.2 F H 71 18 155/78 96 Intake and Output 04/10/19 04/11/19 04/11/19 22:59 06:59 14:59 Intake Total 500 0 Balance 500 0 Intake: Oral 500 0 Other: # Voids 1 1 2 Weight 95.254 kg GENERAL DESCRIPTION: Middle-aged male lying in bed, no distress. No tachypnea or accessory muscle of respiration use. HEENT: Shows Pallor , no scleral icterus. Oral mucous membrane is dry. No pharyngeal erythema or thrush NECK: Trachea central, no thyromegaly. LUNGS: Unlabored breathing. Clear to auscultation anteriorly. No wheeze or crackle. HEART: S1, S2, regular rate and rhythm. No loud murmur ABDOMEN: Soft, no tenderness , guarding or rigidity, no organomegaly EXTREMITIES: Right foot plantar aspect and did have a small wound at the base of first metatarsal head with no purulent drainage also wound on his right second toe with no slough tissue or any drainage SKIN: No rash, no masses palpable. NEUROLOGICAL: The patient is awake, alert, oriented x3, mood and affect normal. Results CBC & Chem 7: 04/11/19 07:41 04/11/19 07:41 Labs: Abnormal Lab Results - Last 24 Hours (Table) 04/10/19 04/11/19 04/11/19 Range/Units 20:15 06:57 07:41 BUN 21 H (9-20) mg/dL POC Glucose (mg/dL) 177 H 61 L (75-99) mg/dL Total Bilirubin 1.8 H (0.2-1.3) mg/dL Unconjugated Bilirubin 1.5 H (0.0-1.1) mg/dL Delta Bilirubin 0.3 H (0.0-0.2) mg/dL 04/11/19 04/11/19 Range/Units 08:53 11:57 BUN (9-20) mg/dL POC Glucose (mg/dL) 139 H 107 H (75-99) mg/dL Total Bilirubin (0.2-1.3) mg/dL Unconjugated Bilirubin (0.0-1.1) mg/dL Delta Bilirubin (0.0-0.2) mg/dL Assessment and Plan Assessment: 1-patient with right diabetic foot wound with secondary cellulitis in this patient who did have low-grade fever and local wound culture did grow multiple pathogens including Pseudomonas and MSSA as well as enterococcus species 2-patient with penicillin ALLERGY limiting the number of antibiotic safe to use Plan: 1-local wound care with the dry Aquacel silver dressing daily, and keep the area off the pressure 2--vancomycin pharmacy to dose target trough of 15 while watching her kidney function and Vanco trough closely 3-cefepime 2 g every 12hr 4-await surgical evaluation and possible debridement we will follow on clinical condition and culture to further adjust medication if needed Thank you for this consultation will follow this patient along with you Time with Patient: Greater than 30
[2019-04-12] MEDS: VANCOMYCIN 1,500 MG in SODIUM CHLORIDE 0.9% 250 ML IVPB SCH ×2 (05:28→14:01)
[2019-04-12 07:04] LABS: Glucose,Whole Blood 72 mg/dL (75-99)
[2019-04-12] MEDS: NICOTINE 14MG/24HR PATCH TRANSDERM SCH (07:46)
[2019-04-12] MEDS: CEFEPIME 2 GM in SODIUM CHLORIDE 0.9% 100 ML IVPB SCH (07:47)
[2019-04-12] MEDS: amLODIPine 5 MG TAB PO SCH (07:47)
[2019-04-12] MEDS: THIAMINE 100 MG TAB PO SCH (07:47)
[2019-04-12] MEDS: MULTIVITAMINS, THERA 1 EACH TAB PO SCH (07:47)
[2019-04-12] MEDS: LOSARTAN 50 MG TAB PO SCH (07:47)
[2019-04-12] MEDS: SERTRALINE 100 MG TAB PO SCH (07:47)
[2019-04-12] MEDS: HEPARIN SODIUM,PORCINE 5,000 UNIT/ML 1 ML VIAL SQ SCH (07:48)
[2019-04-12] MEDS: INSULIN DETEMIR (LEVEMIR) 100 UNIT/ML SYR SQ SCH (07:48)
[2019-04-12] MEDS: SODIUM CHLORIDE 0.9% 1,000 ML IV SCH (07:48)
[2019-04-12 07:53] LABS: Basophils % (A) 1 %; Eosinophils # (A) 0.4 k/uL (0-0.7); Eosinophils % (A) 5 %; HCT 50.1 % (39.0-53.0); HGB 16.9 gm/dL (13.0-17.5); Lymphocytes # (A) 1.6 k/uL (1.0-4.8); Lymphocytes % (A) 21 %; MCH 30.1 pg (25.0-35.0); MCHC 33.6 g/dL (31.0-37.0); MCV 89.6 fL (80.0-100.0); Mean Platelet Volume 7.1; Monocytes # (A) 0.7 k/uL (0-1.0); Monocytes % (A) 9 %; Neutrophils # (A) 4.7 k/uL (1.3-7.7); Neutrophils % (A) 62 %; Platelet Count 238 k/uL (150-450); RDW 13.1 % (11.5-15.5); WBC 7.6 k/uL (3.8-10.6)
[2019-04-12] MEDS: Empagliflozin [Jardiance] PO SCH (07:56)
[2019-04-12 12:19] LABS: Glucose,Whole Blood 91 mg/dL (75-99)
--- NOTE | 2019-04-12 12:24 | PN ---
PROGRESS NOTE DATE OF SERVICE: 04/12/2019 REASON FOR FOLLOWUP: Right diabetic foot infection. INTERVAL HISTORY: The patient is currently afebrile. Patient has been breathing comfortably. Denies having any chest pain or any cough. No nausea or vomiting. No abdominal pain or pain to the right foot area. The patient is status post deroofing of his right foot callus by Surgery. PHYSICAL EXAMINATION: On examination, blood pressure 108/58 with a pulse of 58, temperature 98. He is 98% on room air. General description is a middle-aged male lying in bed in no distress. RESPIRATORY SYSTEM: Unlabored breathing, clear to auscultation anteriorly. HEART: S1, S2. Regular rate and rhythm. ABDOMEN: Soft, no tenderness. Right foot plantar wound looks clean with no slough tissue. Right second toe wound is dressed, no drainage on the dressing. LABS: White count 7.6. DIAGNOSTIC IMPRESSION AND PLAN: Patient with right diabetic foot wound with a callus that has been deroofed, the wound on the right second toe. Local care with Aquacel Silver dressing. Antibiotic transitioned to oral Keflex and Cipro for a week and outpatient followup in the wound center in one week. Questions and concerns were answered. MMODL / IJN: [id number] /
[2019-04-12 12:54] VITALS: BP 145/78; PULSE 56; RESP 18; TEMP 98.1
[2019-04-12 13:19] LABS: African American GFR (CKD) >90 (>60 ml/min/1.73 sqM); Anion Gap 12 mmol/L; Blood Urea Nitrogen 19 mg/dL (9-20); Calcium 9.3 mg/dL (8.4-10.2); Carbon Dioxide 24 mmol/L (22-30); Chloride 103 mmol/L (98-107); Glucose 92 mg/dL (74-99); Potassium 4.5 mmol/L (3.5-5.1); Sodium 139 mmol/L (137-145)
--- NOTE | 2019-04-12 21:50 | P.DS ---
Providers Date of admission: 04/10/19 14:42 Attending physician: Greyson Hernandez MD Consults: 04/10/19 17:43 Consult Physician Routine Consulting Provider: Colin Odonnell Consult Reason/Comments: right diabetic foot ulcer. dressings/antibiotics Do you want consulting provider notified?: Yes 04/10/19 21:03 Consult Physician Routine Consulting Provider: Mercedes Lieberman Consult Reason/Comments: diabetic foot infection Do you want consulting provider notified?: Yes Primary care physician: Greyson Hernandez MD Hospital Course: Diagnoses: Right foot diabetic ulcer with multiple organisms including pseudomonas, enterococcus and staph aureus as well as strep agalactiae. Type 2 diabetes mellitus on insulin therapy Major depression disorder, recently discharged from the psych unit. Not an active issue Alcohol use disorder Nicotine dependence Hospital course: This is a pleasant 53 years old male with past medical history of diabetes mellitus. He presents to the mental health unit for suicidal ideation, patient also was complaining from right foot ulcer going on for a few days. On examination patient looks he had yellowish discolorations with infection of the sole of the first toe base, and later on developed ulcer on the tip of the second toe, patient was started on Keflex with some improvement over the culture came back positive with many microorganisms including Pseudomonas, stripped agalactiae , enterococcus and staph aureus therefore patient was transferred to the general medical floor, he was started on parenteral vancomycin, cefepime and IV normal saline with vascular surgeon and infectious disease teams consulted . Patient was cleared by psychiatrist team for discharge per to transfer the patient. As per Vascular surgery team unroofing of the The callus at the first toe base did not reveal any further ulceration. At this time would continue local wound care for the second digit. With no more surgical intervention planned with a recommendation to follow up with podiatry as as an outpatient. Both infectious disease and a surgery team cleared the patient for discharge. Patient will be discharged on 7 more days of Cipro 500 mg twice daily. Yesterday morning patient sugar was in the 40s, however patient's wants to keep his 40 units of Levemir because his doctor asked him to, he says because his diet onset is different than in the hospital. Risks and benefits and alternatives are explained to the patient. He was instructed to consume more sugar at bedtime and he agrees. However this morning sugar was 72 to 91. A recommended for the patient to lower his insulin dose to 35 units. He verbalizes understanding however he wants to keep it at 40 units and consume more sugar foot. Risks including but not limited to stroke and permanent images are explained for the patient. On the day of discharge patient denies chest pain. No abdominal pain, no nausea vomiting. No change in urine or bowel habits. No other new complaints Problems and management plan were discussed with the patient and he verbalized understanding and acceptance Patient was found stable and can be discharged home however he needs follow-up as an outpatient. Patient was instructed to follow up with his PCP, and crisis counselor in 1 week and he verbalized understanding and acceptance. Patient informed and agrees with appointments made for him , however he made other appointment with his own crisis counselor on 04/25 and he will decide later whom going to f/u with. Gen: patient is a AAOx3, no distress CVS: S1-S2, RRR, no murmur Lungs: B/L CTA, no wheezing Abdomen: soft, no distention, no tenderness, positive bowel sounds -Extremity: no leg edema or induration. superficial ulcer at the base of the first metatarsal base , clean and healing with no s/s of surrounding cellulitis, ulcer at the tip of the second toe also looks clean and healing with no purulent discharge Time spent more than 35 minutes Patient Condition at Discharge: Good Plan - Discharge Summary Discharge Rx Participant: No New Discharge Prescriptions: New Ciprofloxacin HCl [Cipro] 500 mg PO Q12HR #14 tablet Nicotine 14Mg/24Hr Patch [Habitrol] 1 patch TRANSDERM DAILY #30 patch Insulin Detemir (Levemir) [Levemir] 35 unit SQ DAILY syr Multivitamins, Thera [Multivitamin (formulary)] 1 each PO DAILY #30 tab Thiamine [Vitamin B-1] 100 mg PO DAILY #30 tab Sertraline [Zoloft] 100 mg PO DAILY #30 tab Continue Dulaglutide [Trulicity] 1.5 mg SQ Q7D amLODIPine [Norvasc] 5 mg PO DAILY Losartan Potassium [Cozaar] 100 mg PO DAILY Empagliflozin [Jardiance] 25 mg PO DAILY Sertraline [Zoloft] 100 mg PO DAILY tab Discontinued Nicotine [Nicotrol] 1 puff INHALATION RT-Q1H PRN MDD 16 PUFFS PRN Reason: Nicotine Cravings Insulin Degludec [Tresiba Flextouch U-200] 40 units SQ DAILY Cephalexin [Keflex] 500 mg PO TID cap Thiamine [Vitamin B-1] 100 mg PO DAILY tab Multivitamins, Thera [Multivitamin (formulary)] 1 tab PO DAILY Discharge Medication List Dulaglutide [Trulicity] 1.5 mg SQ Q7D 04/05/19 [History] Empagliflozin [Jardiance] 25 mg PO DAILY 04/05/19 [History] Losartan Potassium [Cozaar] 100 mg PO DAILY 04/05/19 [History] amLODIPine [Norvasc] 5 mg PO DAILY 04/05/19 [History] Sertraline [Zoloft] 100 mg PO DAILY tab 04/10/19 [Rx] Ciprofloxacin HCl [Cipro] 500 mg PO Q12HR #14 tablet 04/12/19 [Rx] Insulin Detemir (Levemir) [Levemir] 35 unit SQ DAILY syr 04/12/19 [Rx] Multivitamins, Thera [Multivitamin (formulary)] 1 each PO DAILY #30 tab 04/12/19 [Rx] Nicotine 14Mg/24Hr Patch [Habitrol] 1 patch TRANSDERM DAILY #30 patch 04/12/19 [Rx] Sertraline [Zoloft] 100 mg PO DAILY #30 tab 04/12/19 [Rx] Thiamine [Vitamin B-1] 100 mg PO DAILY #30 tab 04/12/19 [Rx] Follow up Appointment(s)/Referral(s): Tim Cesar DO [STAFF PHYSICIAN] - 04/18/19 11:30 [facility] [NON-STAFF] - 04/20/19 11:30 am (Appointment with Dr. Odonnell) Farhad Valadez MD [STAFF PHYSICIAN] - 04/20/19 9:30 am (Surgeon, for your diabetic foot ulcer) Patient Instructions/Handouts: Foot Care for People with Diabetes (DC), Diabetic Foot Ulcers (DC) Activity/Diet/Wound Care/Special Instructions: Aquacel silver dressing to the right foot and second toe wound change every 48 hour Offloading shoes Follow-up with in the wound care center 1 week Discharge Disposition: HOME SELF-CARE
== END 2019-04-12 14:49 | disposition home or self-care (01) | DRG 638 ==
LOC: 4MS4W 14:42
PROVIDERS: ADMIT Internal Medicine; ATTEND Internal Medicine
DX: E11.621 Type 2 diabetes mellitus with foot ulcer (principal); L03.115 Cellulitis of right lower limb; R45.851 Suicidal ideations; E11.628 Type 2 diabetes mellitus with other skin complications; F17.210 Nicotine dependence, cigarettes, uncomplicated; I10 Essential (primary) hypertension; L97.519 Non-pressure chronic ulcer of other part of right foot with unspecified severity; Z79.4 Long term (current) use of insulin; Z79.899 Other long term (current) drug therapy; Z80.1 Family history of malignant neoplasm of trachea, bronchus and lung; Z83.3 Family history of diabetes mellitus; Z88.0 Allergy status to penicillin; L84 Corns and callosities; F32.9 Major depressive disorder, single episode, unspecified; M50.30 Other cervical disc degeneration, unspecified cervical region; E11.40 Type 2 diabetes mellitus with diabetic neuropathy, unspecified; Z87.440 Personal history of urinary (tract) infections; B96.5 Pseudomonas (aeruginosa) (mallei) (pseudomallei) as the cause of diseases classified elsewhere; B95.2 Enterococcus as the cause of diseases classified elsewhere; B95.61 Methicillin susceptible Staphylococcus aureus infection as the cause of diseases classified elsewhere; B95.4 Other streptococcus as the cause of diseases classified elsewhere
CPT/HCPCS: 80048; 80076; 80202; 85025; 85610; 85730

== ENCOUNTER → 2019-09-21 | Outpatient (CLI) | payer BC ==
--- NOTE | 2019-09-21 14:03 | XR ---
Right foot HISTORY: Right foot ulcer 3 views of the right foot correlated to prior right foot 04/06/2019 The postop changes, hallux obvious deformity, cortical thickening at the first digit are again noted. Loss of distal aspect, foreshortened appearance of the proximal phalanx of the second digit shows a similar appearance. There are degenerative changes at the intertarsal joints. Soft tissue swelling is present. No evident periostitis. IMPRESSION: Soft tissue swelling, correlate for cellulitis. Additional abnormal findings are similar appearance.
== END | disposition home or self-care (01) ==
LOC: RADXRMAIN 11:15
PROVIDERS: ATTEND Family Medicine
DX: M79.89 Other specified soft tissue disorders (principal)

== ENCOUNTER → 2019-09-25 | Outpatient (CLI) | payer BC ==
--- NOTE | 2019-09-25 09:02 | US ---
LOWER EXTREMITY VENOUS INSUFFICIENCY CLINICAL HISTORY: E11.621 Type 2 diabetes mellitus with foot ulcer. No leg pain. Left foot infection . No swelling. No redness. SIDE PERFORMED: Bilateral 1) Color flow is present and patency is documented in the following vessels. No DVT or SVT is noted . EIV Common Femoral Vein Deep Femoral Vein Femoral Vein Popliteal Vein Proximal Calf Veins Greater Saph Vein Upper Small Saph Vein 2) There is venous reflux noted at the following venous levels: Left EIV Left GSV Left CFV- mild 3) Incompetent perforators are noted at these levels: None IMPRESSION: 1. No sonographic evidence of deep venous thrombosis nor superficial venous thrombosis in either the bilateral lower extremities. 2. Venous reflux of the left external iliac vein, greater saphenous vein and common femoral vein.
== END | disposition home or self-care (01) ==
LOC: RADUSWWP 07:21
PROVIDERS: ATTEND Family Medicine
DX: I87.2 Venous insufficiency (chronic) (peripheral) (principal); E11.621 Type 2 diabetes mellitus with foot ulcer; E11.65 Type 2 diabetes mellitus with hyperglycemia
CPT/HCPCS: 93970

== ENCOUNTER → 2019-10-13 | Outpatient (CLI) | payer BC ==
--- NOTE | 2019-10-18 12:06 | P.ARTDOP ---
Arterial Doppler LOWER EXTREMITY ARTERIAL DOPPLER: DATE OF SERVICE: 10/13/2019 Reason for study: Right foot ulcer. Doppler waveforms: Multiphasic bilaterally throughout. Pulse volume recording: []. Pressure gradients: None. Ankle-brachial indices: Greater than 1 bilaterally. Toe brachial indices: 0.8 to on the right, greater than 1 on the left Impression: Normal study.
== END | disposition home or self-care (01) ==
LOC: RADUSWWP 06:49
PROVIDERS: ATTEND Family Medicine
DX: E11.621 Type 2 diabetes mellitus with foot ulcer (principal); E11.65 Type 2 diabetes mellitus with hyperglycemia; L97.508 Non-pressure chronic ulcer of other part of unspecified foot with other specified severity
CPT/HCPCS: 93922; 93923

== ENCOUNTER → 2022-01-27 | Outpatient (CLI) | payer MEDICAID ==
--- NOTE | 2022-01-27 15:46 | US ---
LOWER EXTREMITY VENOUS INSUFFICIENCY Date: 01/27/2022 CLINICAL HISTORY: 56-year-old male L97.515 Non-pressure chronic ulcer of other part of right foot. Ul cer of right great toe. No hx of DVT. Patient does not take blood thinners. SIDE PERFORMED: Bilateral FINDINGS: 1) Color flow is present and patency is documented in the following vessels. No DVT or SVT is noted . Common Femoral Vein Deep Femoral Vein Femoral Vein Popliteal Vein Proximal Calf Veins Greater Saph Vein Upper Small Saph Vein 2) There is venous reflux noted at the following venous levels: Right: CFV and GSV. Possible reflux within the lower right popliteal vein - assessment limited. Left: There appears to be reflux within the CFV and GSV. IMPRESSION: 1. No evidence for DVT within the bilateral lower extremities imaged from the groin into the upper ca lves. 2. Bilateral lower extremity venous reflux within the common femoral veins are greater saphenous vein s. Possible additional venous reflux on the right within the lower popliteal vein.
== END | disposition home or self-care (01) ==
LOC: RADUSWWP 09:42
PROVIDERS: ATTEND Thoracic Surgery (Cardiothoracic Vascular Surgery)
DX: I87.2 Venous insufficiency (chronic) (peripheral) (principal); L97.519 Non-pressure chronic ulcer of other part of right foot with unspecified severity
CPT/HCPCS: 93922; 93970

== ENCOUNTER 2023-11-13 20:18 | Emergency (ER) | payer MEDICAID, OTHER ==
[2023-11-13 20:36] LABS: Glucose,Whole Blood 69 mg/dL (70-110)
[2023-11-13] MEDS: ETOMIDATE 2 MG/ML 10 ML VIAL IVP STA (20:46)
[2023-11-13] MEDS: SUCCINYLCHOLINE CHLORIDE 200 MG/10 ML VIAL IV STA (20:47)
[2023-11-13] MEDS: LORazepam 2 MG/ML INJ IV STA ×2 (20:51→22:20)
[2023-11-13 21:00] LABS: Basophils % (A) 0 %; Eosinophils % (A) 0 %; HGB 18.6 gm/dL (13.0-17.5); Lymphocytes # (A) 0.5 k/uL (1.0-4.8); Lymphocytes % (A) 4 %; MCH 31.4 pg (25.0-35.0); MCHC 32.9 g/dL (31.0-37.0); MCV 95.3 fL (80.0-100.0); Mean Platelet Volume 8.3; Monocytes # (A) 1.2 k/uL (0-1.0); Monocytes % (A) 10 %; Neutrophils # (A) 10.2 k/uL (1.3-7.7); Neutrophils % (A) 84 %; Platelet Count 202 k/uL (150-450); RBC 5.93 m/uL (4.30-5.90); RDW 13.5 % (11.5-15.5)
[2023-11-13 21:01] LABS: HCT 56.6 % (39.0-53.0)
[2023-11-13] MEDS: SODIUM CHLORIDE 0.9% 1,000 ML IV STA (21:03)
[2023-11-13] MEDS: SODIUM CHLORIDE 0.9% 1,000 ML IV ONE ×2 (21:03→21:05)
[2023-11-13 21:09] LABS: INR 1.7 (<1.2); Partial Thromboplastin Time 27.7 sec (22.0-30.0); Prothrombin Time 16.9 sec (10.0-12.5)
[2023-11-13 21:13] LABS: ALT 58 U/L (4-49); AST 152 U/L (17-59); African American GFR (CKD) >90 (>60 ml/min/1.73 sqM); Albumin 3.5 g/dL (3.5-5.0); Alcohol <10 mg/dL; Alkaline Phosphatase 143 U/L (38-126); Anion Gap 10 mmol/L; Blood Urea Nitrogen 50 mg/dL (9-20); Calcium 8.6 mg/dL (8.4-10.2); Carbon Dioxide 25 mmol/L (22-30); Chloride 107 mmol/L (98-107); Glucose 122 mg/dL (74-99); Non-African American GFR(CKD) >90 (>60 ml/min/1.73 sqM); Potassium 4.4 mmol/L (3.5-5.1); Sodium 142 mmol/L (137-145); Total Bilirubin 8.4 mg/dL (0.2-1.3)
[2023-11-13] MEDS: DEXTROSE 50% SYRINGE 50 ML IVP STA (21:16)
[2023-11-13 21:42] LABS: Glucose,Whole Blood 119 mg/dL (70-110)
--- NOTE | 2023-11-13 22:11 | XR ---
EXAMINATION TYPE: XR chest 1V DATE OF EXAM: 11/13/2023 COMPARISON: NONE HISTORY: Altered mental status. Fall. EtOH. TECHNIQUE: Single frontal view of the chest is obtained. FINDINGS: There is an endotracheal tube terminating at the aortic knob level approximately 2 to 3 cm above the ewelina. Low lung volumes and reticular increased markings favor mild edema and/or fibrosis . There is no suspicious focal air space opacity, pleural effusion, or pneumothorax seen. The cardia c silhouette size is within normal limits. The osseous structures are intact. IMPRESSION: 1. Endotracheal tube is satisfactory in position. 2. Low lung volumes with mild bilateral edema and/or fibrotic change. No suspicious focal infiltrate.
--- NOTE | 2023-11-13 22:16 | CT ---
EXAMINATION TYPE: CT brain cspine wo con, CT facial bones wo con DATE OF EXAM: 11/13/2023 COMPARISON: NONE HISTORY: Fall injury CT DLP: 3353.3 mGycm. Automated Exposure Control for Dose Reduction was Utilized. TECHNIQUE: CT scan of the head, facial bones, and cervical spine are performed without contrast. FINDINGS: There is no acute intracranial hemorrhage, mass effect, or midline shift identified. The ventricles and sulci are within normal limits in size for patient's age. Mild low attenuation in th e periventricular white matter. The calvarium is intact. The mandible is intact. Nasal bones are intact. Orbital floors and lezama are intact. The globes are i ntact bilaterally. Zygomatic arches are intact. The maxilla is intact. The pterygoid plates are intac t. Mild to moderate mucosal thickening with dependent opacity or fluid in the right maxillary sinus. Moderate Partial opacification of ethmoid sinuses bilaterally. Mild to moderate mucosal thickening in ferior right frontal sinus. No suspicious opacification of mastoid air cells. Globes are intact bilat erally. Cervical spine is visualized in its entirety from C1 through upper thoracic levels and demonstrates s coliotic curvature or positioning without evidence of acute fracture or dislocation. Prevertebral so ft tissue appears within normal limits. The C1-C2 articulation is within normal limits on the tovar l images. Vertebral body heights are maintained. Dwta-ma-esrronii multilevel spurring and disc space narrowing in the mid to lower cervical spine. Posterior spur disc complexes efface the anterior thec al sac at C5-C6 and C6-C7 levels. Lung apices are clear without pneumothorax. Endotracheal tube is pa rtially imaged. Mild/moderate calcified plaque right greater than left carotid bulbs is seen. Right-s ided nasal tube also noted. IMPRESSION: 1. There is no acute fracture or dislocation evident in the cervical spine. 2. No acute intracranial hemorrhage or midline shift is seen. 3. No acute displaced facial bone fracture.
[2023-11-13 22:23] LABS: ABG HCO3 26 mmol/L (21-25); ABG PCO2 38 mmHg (35-45); ABG PH 7.45 (7.35-7.45); ABG PO2 274 mmHg (83-108); ABG TCO2 27 mmol/L (19-24); Allen Test Performed? Yes
[2023-11-13 22:30] LABS: ABG Oxygen Saturation 99.1 % (94-97)
--- NOTE | 2023-11-13 22:39 | CT ---
EXAMINATION TYPE: CT ChestAbdPelvis w con DATE OF EXAM: 11/13/2023 COMPARISON: None. HISTORY: etoh fall CT DLP: 3335.3 mGycm. Automated Exposure Control for Dose Reduction was Utilized. CONTRAST: CT scan of the thorax, abdomen and pelvis is performed with IV Contrast, patient injected with 100 mL of Isovue 300. FINDINGS: LUNGS: Patchy groundglass opacities and areas of consolidation in the right upper lobe and right midd le lobe are seen. There is medial left lower lobe irregular consolidation and/or atelectasis. There is no pleural effusion or pneumothorax seen. The tracheobronchial tree is patent. MEDIASTINUM: Endotracheal tube terminates above the ewelina. No cardiomegaly. Tiny pericardial effusio n is seen. LIVER/GB: No significant abnormality is appreciated. PANCREAS: No significant abnormality is seen. SPLEEN: No significant abnormality is seen. ADRENALS: No significant abnormality is seen. KIDNEYS: Mildly distended bladder. BOWEL: Moderate wall thickening near the hepatic flexure may be product of poor distention. GENITAL ORGANS: No gross abnormality seen. LYMPH NODES: No greater than 1cm abdominal or pelvic lymph nodes are appreciated. OSSEOUS STRUCTURES: Nonspecific small lucent lesions in the L4 and L5 vertebra. There is a hemangioma involving the roughly T7 vertebra. OTHER: There is left femoral venous catheter terminating in the pelvis. IMPRESSION: 1. No acute posttraumatic finding in particular No acute osseous fracture, abnormal fluid collection, or evidence of solid organ injury in the thorax, abdomen, or pelvis. 2. Patchy groundglass opacities and areas of consolidation in the right upper and middle lobes along with consolidation/atelectasis medial aspect of the left lower lobe. Correlate for acute infectious p rocess. 3. Nonspecific lytic lesions in the lower lumbar spine. Differential includes myeloma and lytic metas tatic disease among possible etiologies. Clinical correlation and follow-up advised.
--- NOTE | 2023-11-13 22:49 | ED ---
Altered Mental Status HPI - General Chief Complaint: Altered Mental Status Stated Complaint: Unresponsive Source: EMS Mode of arrival: EMS Limitations: altered mental status - History of Present Illness Initial Comments: This patient is a 58-year-old man who arrives by ambulance to have evaluation for altered mental status. EMS reports that police had conducted a wellness check after friends had not seen the patient in probably 48 hours. Police found the patient unresponsive lying on the floor facedown and called EMS. EMS states that on scene they found a blood sugar of 50. They were not able to get a peripheral IV they therefore started left pretibial intraosseous line and administer dextrose without change in status. They then brought the patient here. Patient is unresponsive on arrival, cannot give any history. MD Complaint: decreased responsiveness -: unknown Severity: severe - Related Data Home Medications Medication Instructions Recorded Confirmed Dulaglutide [Trulicity] 1.5 mg SQ Q7D 04/05/19 04/10/19 Empagliflozin [Jardiance] 25 mg PO DAILY 04/05/19 04/10/19 Losartan Potassium [Cozaar] 100 mg PO DAILY 04/05/19 04/10/19 amLODIPine [Norvasc] 5 mg PO DAILY 04/05/19 04/10/19 Previous Rx's Medication Instructions Recorded Sertraline [Zoloft] 100 mg PO DAILY tab 04/10/19 Ciprofloxacin HCl [Cipro] 500 mg PO Q12HR #14 tablet 04/12/19 Insulin Detemir (Levemir) [Levemir] 35 unit SQ DAILY syr 04/12/19 Multivitamins, Thera [Multivitamin 1 each PO DAILY #30 tab 04/12/19 (formulary)] Nicotine 14Mg/24Hr Patch [Habitrol] 1 patch TRANSDERM DAILY #30 patch 04/12/19 Sertraline [Zoloft] 100 mg PO DAILY #30 tab 04/12/19 Thiamine [Vitamin B-1] 100 mg PO DAILY #30 tab 04/12/19 Allergies Allergy/AdvReac Type Severity Reaction Status Date / Time Penicillins Allergy Rash/Hives Verified 11/13/23 20:25 Review of Systems ROS Statement: Those systems with pertinent positive or pertinent negative responses have been documented in the HPI. ROS Other: All systems not noted in ROS Statement are negative. Limitations: ROS unobtainable due to patients medical condition Past Medical History Past Medical History: Diabetes Mellitus, Eye Disorder, Hypertension, Skin Disorder Additional Past Medical History / Comment(s): IDDM type II, bilateral retinal bleeds, current R foot wound/ulcer, DDD-cervical and lower back/neuropathy lower legs/feet, bronchitis, UTI, colitis as a child. History of Any Multi-Drug Resistant Organisms: None Reported Additional Past Surgical History / Comment(s): right foot bunion removal and hammer toe fixed, colonoscopy. Past Psychological History: Depression Past Alcohol Use History: Abuse, Daily Past Drug Use History: None Reported - Past Family History Mother Family Medical History: Diabetes Mellitus Additional Family Medical History / Comment(s): Mother from diabetic complications. Father Family Medical History: Cancer Additional Family Medical History / Comment(s): Father of lung cancer. He was a smoker. General Exam General appearance: obtunded Head exam: Present: normocephalic, other (The patient does appear to have right periorbital contusion) Eye exam: Present: PERRL, periorbital swelling (Right periorbital contusion/swelling), other (Some conjunctival hematoma right eye). Absent: scleral icterus, conjunctival injection ENT exam: Present: mucous membranes dry Neck exam: Present: normal inspection. Absent: tenderness Respiratory exam: Present: respiratory distress (Tachypnea), rhonchi. Absent: wheezes, rales, stridor, decreased breath sounds, prolonged expiratory Cardiovascular Exam: Present: normal rhythm, tachycardia, systolic murmur. Absent: diastolic murmur, rubs, gallop GI/Abdominal exam: Present: soft. Absent: distended, tenderness, guarding, rebound, rigid, mass, pulsatile mass Extremities exam: Present: normal inspection, normal capillary refill. Absent: pedal edema, calf tenderness Back exam: Present: normal inspection. Absent: vertebral tenderness Neurological exam: Present: altered, CN II-XII intact, reflexes normal Expanded Eye Response: (1) no response Motor Response: (2) extension to pain Verbal Response: incomprehensible sounds [place] Total: 5 Skin exam: Present: warm, dry, normal color, other (The patient does have right periorbital contusion. He does have few small contusions to the extremities.). Absent: rash Course Vital Signs 11/13/23 11/13/23 11/13/23 20:26 20:45 20:48 Temperature 97.9 F Pulse Rate 92 Pulse Rate [ 93 Pulse Oximetery ] Respiratory 26 H 22 Rate Blood Pressure 174/112 [Left Arm Supine] O2 Sat by Pulse 75 L 99 Oximetry Fraction of 100 Inspired Oxygen (FIO2) 11/13/23 11/13/23 11/13/23 20:59 21:00 21:15 Temperature Pulse Rate Pulse Rate [ 101 H 81 Pulse Oximetery ] Respiratory 24 20 Rate Blood Pressure 138/95 97/60 [Left Arm Supine] O2 Sat by Pulse 100 Oximetry Fraction of 100 Inspired Oxygen (FIO2) 11/13/23 11/13/23 11/13/23 21:30 22:00 22:15 Temperature Pulse Rate Pulse Rate [ 84 74 59 L Pulse Oximetery ] Respiratory 24 24 20 Rate Blood Pressure 114/63 100/78 100/64 [Left Arm Supine] O2 Sat by Pulse 100 98 Oximetry Fraction of Inspired Oxygen (FIO2) 11/13/23 11/13/23 11/13/23 22:26 22:45 23:00 Temperature Pulse Rate Pulse Rate [ 75 70 Pulse Oximetery ] Respiratory 16 20 Rate Blood Pressure 138/95 [Left Arm Supine] O2 Sat by Pulse 99 100 Oximetry Fraction of 50 Inspired Oxygen (FIO2) 11/13/23 11/13/23 11/13/23 23:15 23:30 23:45 Temperature 97.6 F Pulse Rate Pulse Rate [ 70 78 76 Pulse Oximetery ] Respiratory 12 21 22 Rate Blood Pressure 98/78 100/79 100/76 [Left Arm Supine] O2 Sat by Pulse 100 100 100 Oximetry Fraction of Inspired Oxygen (FIO2) 11/14/23 11/14/23 11/14/23 00:00 00:15 00:23 Temperature Pulse Rate Pulse Rate [ 57 L 56 L Pulse Oximetery ] Respiratory 18 20 Rate Blood Pressure 94/58 92/57 [Left Arm Supine] O2 Sat by Pulse 94 L 100 Oximetry Fraction of 50 Inspired Oxygen (FIO2) Procedures - Central Line Placement Left Femoral Consent Obtained: emergent situation Patient Placed on Monitor/Pulse Ox: Yes Prep: mask, gown, gloves Central Line Prep: Chlorhexidine scrub Local Anesthesia Used: Lidocaine 1% Central Line Lumen Inserted: triple Central Line Position: good blood return, all ports aspirated, flushed, capped, sutured in place with 2-0 silk Dressing Applied: Tegaderm Patient Tolerated Procedure: well, no complications Complications: none - Intubation Sedative: Etomidate Paralytic: Succinylcholine Laryngoscope: Ny Size: 3 ET Tube Size: 8 ET Tube Uncuffed: No Tube Placement Confirmation: visualized tube passing through cords, equal breath sounds bilaterally, no breath sounds over epigastrium, confirmation by capnometry Patient Tolerated Procedure: well, no complications Intubation Complications: none Medical Decision Making - Medical Decision Making Patient is 58-year-old man who is brought by ambulance after being found unresponsive lying facedown on floor, period of time is unknown. EMS reported that they found blood sugar 50 on scene. They were not able to start peripheral IV and therefore placed IO line left pretibial, administered dextrose with no change in status. On arrival here, patient does have some huerta of trauma right periorbital contusion and some extremity contusions. The patient is worked up for broad differential diagnosis, including traumatic and medical causes of altered mental status. Patient did have empiric Rocephin. The patient had empiric sepsis bolus. The patient had central line placed by myself, see the note, and once vascular access was secured, the patient was intubated as there were not reliable protective airway reflexes, see the note. The workup reveals degree of hepatic encephalopathy. The patient had friends who had called for the wellness check, that arrived at the hospital when they did state that the patient had previous history of heavy drinking which would be consistent with hepatic encephalopathy, but they state t hat the patient had not been drinking in months, and his alcohol level was negative here. I discussed the case with the covering hospitalist group and they state that as there is no GI coverage they recommend transfer to have GI consultation. Case discussed with the transfer team at [facility], including , and they will accept transfer. The patient had CT of the brain and C-spine which I interpreted as negative for acute bony injury and negative for acute intracranial hemorrhage The patient had CT scan of the abdomen and pelvis which I interpreted as negative for obstruction or free air. No acute surgical condition. The patient had chest x-ray following intubation which I interpreted as showing good endotracheal tube placement and no infiltrate Was pt. sent in by a medical professional or institution (, PA, ENVELOPE PRESS OPERATOR, urgent care, hospital, or fci...) When possible be specific @ -[No] Did you speak to anyone other than the patient for history (EMS, parent, family, police, friend...)? What history was obtained from this source @ -[EMS provided history. Patient's friends arrived and provided history Did you review nursing and triage notes (agree or disagree)? Why? @ -[I reviewed and agree with nursing and triage notes] Were old charts reviewed (outside hosp., previous admission, EMS record, old EKG, old radiological studies, urgent care reports/EKG's, fci records)? Report findings @ -[No old charts were reviewed] Differential Diagnosis (chest pain, altered mental status, abdominal pain women, abdominal pain men, vaginal bleeding, weakness, fever, dyspnea, syncope, headache, dizziness, GI bleed, back pain, seizure, CVA, palpatations, mental health, musculoskeletal)? @ -[Differential Altered Mental Status: Hypoglycemia, DKA, hypercapnia, ETOH, overdose, CO poisoning, trauma, myxedema coma, HTN encephalopathy, infection, encephalitis, psychosis, intercranial hemorrhage, hepatic encephalopathy, meningitis, CVA, this is not meant to be an all-inclusive list EKG interpreted by me (3pts min.). @ -[I interpreted as above] X-rays interpreted by me (1pt min.). @ -[I interpreted as above CT interpreted by me (1pt min.). @ -[I interpreted as above U/S interpreted by me (1pt. min.). @ -[None done] What testing was considered but not performed or refused? (CT, X-rays, U/S, labs)? Why? @ -[None] What meds were considered but not given or refused? Why? @ -[None] Did you discuss the management of the patient with other professionals (professionals i.e. , PA, ENVELOPE PRESS OPERATOR, lab, RT, psych nurse, social work specialist, chair, teacher, strike operations officer, spring encaser)? Give summary @ -[Case discussed with the hospitalist physician and the do recommend transfer as no display decorator available Was smoking cessation discussed for >3mins.? @ -[No] Was critical care preformed (if so, how long)? @ -[Yes 45 minutes Were there social determinants of health that impacted care today? How? (Homelessness, low income, unemployed, alcoholism, drug addiction, transportation, low edu. Level, literacy, decrease access to med. care, care home, rehab)? @ -[No] Was there de-escalation of care discussed even if they declined (Discuss DNR or withdrawal of care, Hospice)? DNR status @ -[No] What co-morbidities impacted this encounter? (DM, HTN, Smoking, COPD, CAD, Cancer, CVA, ARF, Chemo, Hep., AIDS, mental health diagnosis, sleep apnea, morbid obesity)? @ -[None] Was patient admitted / discharged? Hospital course, mention meds given and route, prescriptions, significant lab abnormalities, going to OR and other pertinent info. @ -[See the above note Undiagnosed new problem with uncertain prognosis? @ -[No] Drug Therapy requiring intensive monitoring for toxicity (Heparin, Nitro, Insulin, Cardizem)? @ -[No] Were any procedures done? @ -[Central line placement and intubation were performed, see the notes Diagnosis/symptom? @ -[Acute altered mental status. Hepatic encephalopathy Dehydration Lactic acidosis Elevated troponin Acute, or Chronic, or Acute on Chronic? @ -[Acute Uncomplicated (without systemic symptoms) or Complicated (systemic symptoms)? @ -[Complicated by mental status change Side effects of treatment? @ -[No] Exacerbation, Progression, or Severe Exacerbation? @ -[No] Poses a threat to life or bodily function? How? (Chest pain, [place], [place], pneumonia, PE, COPD, DKA, ARF, appy, cholecystitis, CVA, Diverticulitis, Homicidal, Suicidal, threat to staff... and all critical care pts) @ -[Yes - Lab Data Result diagrams: 11/13/23 20:27 11/13/23 20:27 Lab Results 11/13/23 11/13/23 11/13/23 Range/Units 20:27 20:27 20:27 WBC 12.0 H (3.8-10.6) k/uL RBC 5.93 H (4.30-5.90) m/uL Hgb 18.6 H (13.0-17.5) gm/dL Hct 56.6 H (39.0-53.0) % MCV 95.3 (80.0-100.0) fL MCH 31.4 (25.0-35.0) pg MCHC 32.9 (31.0-37.0) g/dL RDW 13.5 (11.5-15.5) % Plt Count 202 (150-450) k/uL MPV 8.3 Neutrophils % 84 % Lymphocytes % 4 % Monocytes % 10 % Eosinophils % 0 % Basophils % 0 % Neutrophils # 10.2 H (1.3-7.7) k/uL Lymphocytes # 0.5 L (1.0-4.8) k/uL Monocytes # 1.2 H (0-1.0) k/uL Eosinophils # 0.0 (0-0.7) k/uL Basophils # 0.0 (0-0.2) k/uL PT 16.9 H (10.0-12.5) sec INR 1.7 H (<1.2) APTT 27.7 (22.0-30.0) sec Sample Site ABG pH (7.35-7.45) ABG pCO2 (35-45) mmHg ABG pO2 (83-108) mmHg ABG HCO3 (21-25) mmol/L ABG Total CO2 (19-24) mmol/L ABG O2 Saturation (94-97) % ABG Base Excess mmol/L Lopez Test FiO2 % Sodium 142 (137-145) mmol/L Potassium 4.4 (3.5-5.1) mmol/L Chloride 107 (98-107) mmol/L Carbon Dioxide 25 (22-30) mmol/L Anion Gap 10 mmol/L BUN 50 H (9-20) mg/dL Creatinine 0.83 (0.66-1.25) mg/dL Est GFR (CKD-EPI)AfAm >90 (>60 ml/min/1.73 sqM) Est GFR (CKD-EPI)NonAf >90 (>60 ml/min/1.73 sqM) Glucose 122 H (74-99) mg/dL POC Glucose (mg/dL) (70-110) mg/dL POC Glu Bar Staff ID Lactic Ac Sepsis Rflx Plasma Lactic Acid Hao (0.7-2.0) mmol/L Calcium 8.6 (8.4-10.2) mg/dL Total Bilirubin 8.4 H (0.2-1.3) mg/dL AST 152 H (17-59) U/L ALT 58 H (4-49) U/L Alkaline Phosphatase 143 H (38-126) U/L Ammonia (<30) umol/L Creatine Kinase (55-170) U/L Troponin I (0.000-0.034) ng/mL Total Protein 7.0 (6.3-8.2) g/dL Albumin 3.5 (3.5-5.0) g/dL Urine Color Urine Appearance (Clear) Urine pH (5.0-8.0) Ur Specific Guy (1.001-1.035) Urine Protein (Negative) Urine Glucose (UA) (Negative) Urine Ketones (Negative) Urine Blood (Negative) Urine Nitrite (Negative) Urine Bilirubin (Negative) Urine Urobilinogen (<2.0) mg/dL Ur Leukocyte Esterase (Negative) Urine RBC (0-5) /hpf Urine WBC (0-5) /hpf Ur Squamous Epith Cells (0-4) /hpf Urine Mucus (None) /hpf Urine Opiates Screen (NotDetected) Ur Oxycodone Screen (NotDetected) Urine Methadone Screen (NotDetected) Ur Barbiturates Screen (NotDetected) U Tricyclic Antidepress (NotDetected) Ur Phencyclidine Scrn (NotDetected) Ur Amphetamines Screen (NotDetected) U Methamphetamines Scrn (NotDetected) U Benzodiazepines Scrn (NotDetected) Urine Cocaine Screen (NotDetected) U Marijuana (THC) Screen (NotDetected) Serum Alcohol <10 mg/dL Acetone, Qual Negative (Negative) 11/13/23 11/13/23 11/13/23 Range/Units 20:27 20:27 20:27 WBC (3.8-10.6) k/uL RBC (4.30-5.90) m/uL Hgb (13.0-17.5) gm/dL Hct (39.0-53.0) % MCV (80.0-100.0) fL MCH (25.0-35.0) pg MCHC (31.0-37.0) g/dL RDW (11.5-15.5) % Plt Count (150-450) k/uL MPV Neutrophils % % Lymphocytes % % Monocytes % % Eosinophils % % Basophils % % Neutrophils # (1.3-7.7) k/uL Lymphocytes # (1.0-4.8) k/uL Monocytes # (0-1.0) k/uL Eosinophils # (0-0.7) k/uL Basophils # (0-0.2) k/uL PT (10.0-12.5) sec INR (<1.2) APTT (22.0-30.0) sec Sample Site ABG pH (7.35-7.45) ABG pCO2 (35-45) mmHg ABG pO2 (83-108) mmHg ABG HCO3 (21-25) mmol/L ABG Total CO2 (19-24) mmol/L ABG O2 Saturation (94-97) % ABG Base Excess mmol/L Lopez Test FiO2 % Sodium (137-145) mmol/L Potassium (3.5-5.1) mmol/L Chloride (98-107) mmol/L Carbon Dioxide (22-30) mmol/L Anion Gap mmol/L BUN (9-20) mg/dL Creatinine (0.66-1.25) mg/dL Est GFR (CKD-EPI)AfAm (>60 ml/min/1.73 sqM) Est GFR (CKD-EPI)NonAf (>60 ml/min/1.73 sqM) Glucose (74-99) mg/dL POC Glucose (mg/dL) (70-110) mg/dL POC Glu Bar Staff ID Lactic Ac Sepsis Rflx Plasma Lactic Acid Hao 3.3 H* (0.7-2.0) mmol/L Calcium (8.4-10.2) mg/dL Total Bilirubin (0.2-1.3) mg/dL AST (17-59) U/L ALT (4-49) U/L Alkaline Phosphatase (38-126) U/L Ammonia 82 H (<30) umol/L Creatine Kinase (55-170) U/L Troponin I 0.095 H* (0.000-0.034) ng/mL Total Protein (6.3-8.2) g/dL Albumin (3.5-5.0) g/dL Urine Color Urine Appearance (Clear) Urine pH (5.0-8.0) Ur Specific Guy (1.001-1.035) Urine Protein (Negative) Urine Glucose (UA) (Negative) Urine Ketones (Negative) Urine Blood (Negative) Urine Nitrite (Negative) Urine Bilirubin (Negative) Urine Urobilinogen (<2.0) mg/dL Ur Leukocyte Esterase (Negative) Urine RBC (0-5) /hpf Urine WBC (0-5) /hpf Ur Squamous Epith Cells (0-4) /hpf Urine Mucus (None) /hpf Urine Opiates Screen (NotDetected) Ur Oxycodone Screen (NotDetected) Urine Methadone Screen (NotDetected) Ur Barbiturates Screen (NotDetected) U Tricyclic Antidepress (NotDetected) Ur Phencyclidine Scrn (NotDetected) Ur Amphetamines Screen (NotDetected) U Methamphetamines Scrn (NotDetected) U Benzodiazepines Scrn (NotDetected) Urine Cocaine Screen (NotDetected) U Marijuana (THC) Screen (NotDetected) Serum Alcohol mg/dL Acetone, Qual (Negative) 11/13/23 11/13/23 11/13/23 Range/Units 20:34 21:40 22:07 WBC (3.8-10.6) k/uL RBC (4.30-5.90) m/uL Hgb (13.0-17.5) gm/dL Hct (39.0-53.0) % MCV (80.0-100.0) fL MCH (25.0-35.0) pg MCHC (31.0-37.0) g/dL RDW (11.5-15.5) % Plt Count (150-450) k/uL MPV Neutrophils % % Lymphocytes % % Monocytes % % Eosinophils % % Basophils % % Neutrophils # (1.3-7.7) k/uL Lymphocytes # (1.0-4.8) k/uL Monocytes # (0-1.0) k/uL Eosinophils # (0-0.7) k/uL Basophils # (0-0.2) k/uL PT (10.0-12.5) sec INR (<1.2) APTT (22.0-30.0) sec Sample Site Right Radial ABG pH 7.45 (7.35-7.45) ABG pCO2 38 (35-45) mmHg ABG pO2 274 H (83-108) mmHg ABG HCO3 26 H (21-25) mmol/L ABG Total CO2 27 H (19-24) mmol/L ABG O2 Saturation 99.1 H (94-97) % ABG Base Excess 2.0 mmol/L Lopez Test Yes FiO2 100 % Sodium (137-145) mmol/L Potassium (3.5-5.1) mmol/L Chloride (98-107) mmol/L Carbon Dioxide (22-30) mmol/L Anion Gap mmol/L BUN (9-20) mg/dL Creatinine (0.66-1.25) mg/dL Est GFR (CKD-EPI)AfAm (>60 ml/min/1.73 sqM) Est GFR (CKD-EPI)NonAf (>60 ml/min/1.73 sqM) Glucose (74-99) mg/dL POC Glucose (mg/dL) 69 L 119 H (70-110) mg/dL POC Glu Bar Staff ID Talib Lynch Jean Lactic Ac Sepsis Rflx Plasma Lactic Acid Hao (0.7-2.0) mmol/L Calcium (8.4-10.2) mg/dL Total Bilirubin (0.2-1.3) mg/dL AST (17-59) U/L ALT (4-49) U/L Alkaline Phosphatase (38-126) U/L Ammonia (<30) umol/L Creatine Kinase (55-170) U/L Troponin I (0.000-0.034) ng/mL Total Protein (6.3-8.2) g/dL Albumin (3.5-5.0) g/dL Urine Color Urine Appearance (Clear) Urine pH (5.0-8.0) Ur Specific Guy (1.001-1.035) Urine Protein (Negative) Urine Glucose (UA) (Negative) Urine Ketones (Negative) Urine Blood (Negative) Urine Nitrite (Negative) Urine Bilirubin (Negative) Urine Urobilinogen (<2.0) mg/dL Ur Leukocyte Esterase (Negative) Urine RBC (0-5) /hpf Urine WBC (0-5) /hpf Ur Squamous Epith Cells (0-4) /hpf Urine Mucus (None) /hpf Urine Opiates Screen (NotDetected) Ur Oxycodone Screen (NotDetected) Urine Methadone Screen (NotDetected) Ur Barbiturates Screen (NotDetected) U Tricyclic Antidepress (NotDetected) Ur Phencyclidine Scrn (NotDetected) Ur Amphetamines Screen (NotDetected) U Methamphetamines Scrn (NotDetected) U Benzodiazepines Scrn (NotDetected) Urine Cocaine Screen (NotDetected) U Marijuana (THC) Screen (NotDetected) Serum Alcohol mg/dL Acetone, Qual (Negative) 11/13/23 11/13/23 11/13/23 Range/Units 22:37 22:42 23:26 WBC (3.8-10.6) k/uL RBC (4.30-5.90) m/uL Hgb (13.0-17.5) gm/dL Hct (39.0-53.0) % MCV (80.0-100.0) fL MCH (25.0-35.0) pg MCHC (31.0-37.0) g/dL RDW (11.5-15.5) % Plt Count (150-450) k/uL MPV Neutrophils % % Lymphocytes % % Monocytes % % Eosinophils % % Basophils % % Neutrophils # (1.3-7.7) k/uL Lymphocytes # (1.0-4.8) k/uL Monocytes # (0-1.0) k/uL Eosinophils # (0-0.7) k/uL Basophils # (0-0.2) k/uL PT (10.0-12.5) sec INR (<1.2) APTT (22.0-30.0) sec Sample Site ABG pH (7.35-7.45) ABG pCO2 (35-45) mmHg ABG pO2 (83-108) mmHg ABG HCO3 (21-25) mmol/L ABG Total CO2 (19-24) mmol/L ABG O2 Saturation (94-97) % ABG Base Excess mmol/L Lopez Test FiO2 % Sodium (137-145) mmol/L Potassium (3.5-5.1) mmol/L Chloride (98-107) mmol/L Carbon Dioxide (22-30) mmol/L Anion Gap mmol/L BUN (9-20) mg/dL Creatinine (0.66-1.25) mg/dL Est GFR (CKD-EPI)AfAm (>60 ml/min/1.73 sqM) Est GFR (CKD-EPI)NonAf (>60 ml/min/1.73 sqM) Glucose (74-99) mg/dL POC Glucose (mg/dL) (70-110) mg/dL POC Glu Bar Staff ID Lactic Ac Sepsis Rflx Y Plasma Lactic Acid Hao (0.7-2.0) mmol/L Calcium (8.4-10.2) mg/dL Total Bilirubin (0.2-1.3) mg/dL AST (17-59) U/L ALT (4-49) U/L Alkaline Phosphatase (38-126) U/L Ammonia (<30) umol/L Creatine Kinase 1448 H* (55-170) U/L Troponin I (0.000-0.034) ng/mL Total Protein (6.3-8.2) g/dL Albumin (3.5-5.0) g/dL Urine Color [place] Urine Appearance Clear (Clear) Urine pH 6.0 (5.0-8.0) Ur Specific Guy 1.050 H (1.001-1.035) Urine Protein 2+ H (Negative) Urine Glucose (UA) 3+ H (Negative) Urine Ketones Trace H (Negative) Urine Blood Moderate H (Negative) Urine Nitrite Negative (Negative) Urine Bilirubin 1+ H (Negative) Urine Urobilinogen 6.0 (<2.0) mg/dL Ur Leukocyte Esterase Negative (Negative) Urine RBC 8 H (0-5) /hpf Urine WBC <1 (0-5) /hpf Ur Squamous Epith Cells <1 (0-4) /hpf Urine Mucus Occasional H (None) /hpf Urine Opiates Screen Not Detected (NotDetected) Ur Oxycodone Screen Not Detected (NotDetected) Urine Methadone Screen Not Detected (NotDetected) Ur Barbiturates Screen Not Detected (NotDetected) U Tricyclic Antidepress Not Detected (NotDetected) Ur Phencyclidine Scrn Not Detected (NotDetected) Ur Amphetamines Screen Not Detected (NotDetected) U Methamphetamines Scrn Not Detected (NotDetected) U Benzodiazepines Scrn Detected H (NotDetected) Urine Cocaine Screen Not Detected (NotDetected) U Marijuana (THC) Screen Not Detected (NotDetected) Serum Alcohol mg/dL Acetone, Qual (Negative) Critical Care Time Critical Care Time: Yes (45 minutes) Disposition Clinical Impression: Altered mental status, Hepatic encephalopathy, Jaundice Disposition: OTHER INSTITUTION NOT DEFINED Condition: Critical Is patient prescribed a controlled substance at d/c from ED?: No Referrals: Tim Cesar DO [Primary Care Provider] - 1-2 days - Out of Hospital Transfer - Req. Specs Out of Hospital Transfer - Requested Specifics: Other Emergency Center
[2023-11-13 22:54] LABS: Appearance,Urine Clear (Clear); Bilirubin,Urine 1+ (Negative); Blood,Urine Moderate (Negative); Color,Urine Orange; Glucose,Urine (UA) 3+ (Negative); Ketones,Urine Trace (Negative); Leukocyte Esterase,Urine Negative (Negative); Mucus,Urine Occasional /hpf; Nitrite,Urine Negative (Negative); Protein,Urine 2+ (Negative); RBC,Urine 8 /hpf (0-5); Squamous Epithelial Cell,Urine <1 /hpf (0-4); WBC,Urine <1 /hpf (0-5)
[2023-11-13 22:58] LABS: Amphetamine Screen,Urine Not Detected (NotDetected); Barbiturate Screen,Urine Not Detected (NotDetected); Benzodiazepines Screen,Urine Detected (NotDetected); Cocaine Screen,Urine Not Detected (NotDetected); Methadone Screen, Urine Not Detected (NotDetected); Opiate Screen,Urine Not Detected (NotDetected); Oxycodone Screen, Urine Not Detected (NotDetected); Phencyclidine Screen,Urine Not Detected (NotDetected); Tricyclic Antidepressant,Urine Not Detected (NotDetected); Urn Cannabinoid Scrn Not Detected (NotDetected)
[2023-11-14] MEDS: LACTULOSE 20 GM/30 ML CUP PO ONE (00:25)
[2023-11-14] MEDS: LORazepam 2 MG/ML INJ IV STA (00:41)
[2023-11-14 05:23] VITALS: BP 92/57; PULSE 56; RESP 20; TEMP 97.6
== END 2023-11-14 00:44 | disposition other institution (70) ==
LOC: EC 20:18
DX: K76.82 Hepatic encephalopathy (principal); R41.82 Altered mental status, unspecified; Z88.0 Allergy status to penicillin
CPT/HCPCS: 31500; 36556; 99291; 96365; 96375 ×2; 96361 ×4; 51702; 36415; 36600; 94002; 80053; 82140; 82550; 82805; 82009; 83605; 84484; 85025; 85610; 85730; 81001; 87040; 80306; 87077; 87186; 71045; 72125; 70486; 70450; 71260; 74177; 96376; G0480; J0330; J2060 ×2; J0696; J2704; Q9967; 80320